=== PATIENT | female | born 1955 | race Caucasian/White ===

== ENCOUNTER → 2017-09-10 09:21 | Outpatient (CLI) | payer BC, SELFPAY ==
--- NOTE | 2017-09-10 09:25 | MM_ITS ---
MM Dig screening mamm BI w/CAD CAD Screening COMPARISON: Digital mammograms 07/10/2016 and 07/08/2015 INDICATION: There is no personal or family history of breast cancer TECHNIQUE: Standard CC and MLO images were obtained. R2 CAD reviewed. FINDINGS: Scattered fibroglandular densities are seen in both breast primarily upper outer quadrants. There are 2 mole markers left breast and a single marker right breast. There are 2 faint density seen in her quadrant right breast only definitely on the cc view. These may be moles but they are not marked as such. There is a possible asymmetric density just deep to the nipple left breast. Suggest patient return for spot compression views of the densities right breast and left breast and possibly ultrasound if these prove to be a true lesions. There are no suspicious microcalcifications. IMPRESSION: Fibrofatty parenchyma with possible new asymmetric densities in each breast BI-RADS Category: 0 Need Additional Imaging Evaluation RECOMMENDED FOLLOW-UP: IMM - IMMEDIATE FOLLOW-UP RECOMMENDED (A letter has been sent to the patient regarding results of the study.)
== END ==
PROVIDERS: Family Provider Family Medicine; PCP Family Medicine; Visit Provider Family Medicine
DX: Z12.31 Encounter for screening mammogram for malignant neoplasm of breast (principal)
CPT/HCPCS: 77067

== ENCOUNTER → 2017-09-26 16:18 | Outpatient (CLI) | payer BC, SELFPAY ==
--- NOTE | 2017-09-26 | US_ITS ---
MM Dig mamm BI DX w/CAD, US breast LT complete COMPARISON: 3 06/18 and 07/10/2016 INDICATION: Follow-up abnormal mammogram ORDERING PHYSICIAN: Dylan Wu MD PATIENT AGE: 62 years TECHNIQUE: Problem-solving views of both breasts and left breast ultrasound FINDINGS: Right breast: The area of asymmetric density in the medial aspect and retroareolar region of the right breast appear to compress out as fibroglandular tissue Left breast: Spot compression views of the left breast shows some persistent nodularity in the medial aspect of the left breast probably related to fibroglandular tissue. Left breast ultrasound with axilla: There is an oval 7 x 3 mm area of decreased echogenicity at 6:00 near the chest wall. No other significant anomalies are evident. IMPRESSION: No convincing evidence of malignancy. Probably benign findings both breasts BI-RADS Category: 3 Benign Finding Short Term Follow-up RECOMMENDED FOLLOW-UP: 6M - 6 MONTH FOLLOW-UP Recommend bilateral mammographic follow-up and left sonographic follow-up in 6 months (A letter has been sent to the patient regarding results of the study.)
== END ==
PROVIDERS: Family Provider Family Medicine; PCP Family Medicine; Visit Provider Family Medicine
DX: R92.8 Other abnormal and inconclusive findings on diagnostic imaging of breast (principal)
CPT/HCPCS: 76641; 77066

== ENCOUNTER → 2018-03-21 13:06 | Outpatient (CLI) | payer BC, SELFPAY ==
--- NOTE | 2018-03-21 13:11 | MM_ITS ---
MM Dig mamm BI DX w/CAD, US breast LT complete INDICATION: Follow-up abnormal mammogram ORDERING PHYSICIAN: Dylan Wu MD PATIENT AGE: 62 years COMPARISON: 09/26/2017, 09/10/2017, 07/10/2016, 07/09/2014 TECHNIQUE: Standard images performed of both breasts along with spot compression views of the left breast and left breast ultrasound FINDINGS: There is average fibroglandular tissue. The asymmetric density in the medial aspect of the right breast has not significantly changed. Benign-appearing nodular opacity lateral right breast also unchanged. Asymmetric density in the medial aspect of the left breast in the retroareolar region somewhat less apparent. No malignant appearing mass or malignant microcalcification is evident. Left breast ultrasound: Hypoechoic 6 mm area once again noted in the left breast at 6:00 not significant changed. No suspicious abnormalities evident. IMPRESSION: Benign findings, no evidence of malignancy, no significant change Recommend continued screening mammogram in August 2018 BI-RADS Category: 2 Benign Finding(s) RECOMMENDED FOLLOW-UP: 6M - 6 MONTH FOLLOW-UP (A letter has been sent to the patient regarding results of the study.)
== END ==
PROVIDERS: PCP Family Medicine; Visit Provider Family Medicine
DX: R92.8 Other abnormal and inconclusive findings on diagnostic imaging of breast (principal)
CPT/HCPCS: 76641; 77066

== ENCOUNTER → 2018-09-24 09:38 | Outpatient (CLI) | payer MEDICARE, SELFPAY ==
--- NOTE | 2018-09-24 09:43 | MM_ITS ---
MM Dig screening mamm BI w/CAD CAD Screening COMPARISON: Digital mammograms with CAD 03/21/2018 and 07/10/2016 INDICATION: There is no personal or family history of breast cancer TECHNIQUE: Standard CC and MLO images were obtained. R2 CAD reviewed. FINDINGS: Scattered fibroglandular densities are seen throughout both breasts and the findings are bilateral and symmetrical. There are mole markers on each breast. There is no suspicious lesion and there are no suspicious microcalcifications. IMPRESSION: Fibrofatty parenchyma with no suspicious lesion seen BI-RADS Category: 2 Benign Finding(s) RECOMMENDED FOLLOW-UP: 1YR - 1 YEAR FOLLOW-UP (A letter has been sent to the patient regarding results of the study.)
== END ==
PROVIDERS: PCP Family Medicine; Referring Provider Family Medicine; Visit Provider Family Medicine
DX: Z12.31 Encounter for screening mammogram for malignant neoplasm of breast (principal)
CPT/HCPCS: 77067

== ENCOUNTER → 2018-10-22 15:25 | Outpatient (POV) | payer MEDICARE, SELFPAY | PROVIDERS: Visit Provider Dermatology | DX: Z00.00 Encounter for general adult medical examination without abnormal findings (principal) ==

== ENCOUNTER → 2019-07-08 14:05 | Outpatient (POV) | payer MEDICARE, SELFPAY | PROVIDERS: Visit Provider Dermatology | DX: Z00.00 Encounter for general adult medical examination without abnormal findings (principal) ==

== ENCOUNTER → 2019-12-18 13:07 | Outpatient (CLI) | payer MEDICARE, SELFPAY ==
--- NOTE | 2019-12-18 13:11 | MM_ITS ---
PROCEDURE: MM DIG SCREENING MAMM BI W/CAD Digital Breast Tomosynthesis Included CLINICAL INDICATION: SCREENING There is no personal or family history of breast cancer. COMPARISON: [facility] MM Dig mamm BI DX w/CAD from 09/26/2017 [facility] MM Dig mamm BI DX w/CAD from 03/21/2018 [facility] MM Dig screening mamm BI w/CAD from 09/24/2018 TECHNIQUE: Standard CC and MLO images and 3D Tomosynthesis was obtained. R2 CAD reviewed. FINDINGS: Moderate diffuse scattered fibroglandular densities are seen throughout both breasts primarily upper outer quadrants. There multiple mole markers on each breast. There is a stable nodular density outer quadrant right breast. There is no suspicious lesion and no suspicious microcalcifications. IMPRESSION: Fibrofatty parenchyma with no suspicious lesions seen BI-RAD Category: 2 Benign Finding(s) FOLLOW-UP: 1YR 1 Year Follow-up (A letter has been sent to the patient regarding results of the study.) Dictated by: Dr. Fadi Bernardo MD 12/19/2019 10:[address] Fadi Bernardo MD in [place] 12/19/2019 10:58
== END ==
PROVIDERS: Visit Provider Family Medicine
DX: Z12.31 Encounter for screening mammogram for malignant neoplasm of breast (principal)
CPT/HCPCS: 77063; 77067

== ENCOUNTER → 2020-01-30 10:09 | Outpatient (CLI) | payer MEDICARE, SELFPAY ==
[2020-01-30 14:24] LABS: Coronavirus 19 IgG Antibody Negative (Negative); Coronavirus 19 IgM Antibody Negative (Negative)
== END ==
PROVIDERS: Visit Provider Internal Medicine Gastroenterology
DX: Z01.818 Encounter for other preprocedural examination (principal); Z12.11 Encounter for screening for malignant neoplasm of colon
CPT/HCPCS: 36415; 86328

== ENCOUNTER 2020-02-02 07:23 | Day surgery (SDC) | payer MEDICARE, SELFPAY ==
[2020-01-28 12:33] VITALS: BMI 30.9
[2020-02-02] VITALS (7 sets, daily range): BP systolic 92–149; BP diastolic 43–81; PULSE 44–54; RESP 18; TEMP 36.1–36.4; O2SAT 97–99
--- NOTE | 2020-02-02 08:07 | P.PN_ITS ---
[facility] Anesthesia Checklist - Patient Identification Patient Identification: Arm Band - Structural Data Admitted From: Home Planned Operative Procedure/s: colonoscopy Consent for Planned Operative Procedure(s) Verified: Yes Verified Documents: Surgical Consent, History and Physical - NPO Status Verified Time NPO: 00:00 - Additional verifications Anesthesia Reactions: No - Airway Assessment C-Spine Mobility Assessed: Yes (mp2) TMJ Mobility Assessed: Yes Dentition: Good Dentition - Neurological Assessment Level of Consciousness: Awake, Alert - Anesthesia Plan Anesthesia Risk discussed: Yes Anesthesia Plan: Verified ASA Class: II Anesthesia Type: MAC [facility] History I have reviewed the patient's past medical history: Yes Medical History: Reports:: Hyperlipidemia, Hypertension Denies:: Cancer, Diabetes Mellitus Type 1, Diabetes Mellitus Type 2, Internal Pacemaker, MRSA, Seizures *Have you ever received a pneumonia vaccine?: Yes *Have you received a flu vaccine this season?: Yes Anesthesia experience/problems:: nac Other Surgeries: Yes: Other (back). No: Pacemaker Amputation: No Fractures: No - *Social History Last grade of school completed: Advanced degree Smoking Status: Never smoker Alcohol Intake: never Alcohol Intake Frequency:: a few times a month Substance Use Type: denies use *Occupational Status:: retired Housing: house Household Members: spouse *Travel in the last 8 weeks: Inside the [facility] Family Hx:: Cancer, Heart Attack
--- NOTE | 2020-02-02 08:16 | P.PCN_ITS ---
[facility] Procedure Note Procedure Note:: Colonoscopy Procedure Report: Colonoscopy with cold snare polypectomy Endoscopist: David Koch II, MD Referring physician: Juvenal Wu MD Date of Procedure: February 02, 2020 Equipment: Olympus 180 variable stiffness pediatric colonoscope Sedation: MAC sedation Indication: Mrs. Stoner is a 64-year-old female who is here for follow-up screening/surveillance colonoscopy. She did have initial screening colonoscopy in July 2009 and had a single polyp (inflammatory polyp) removed at that time. She reports no abdominal pain, weight loss, change in her bowel habits or rectal bleeding. She reports no family history of colon cancer. Procedure: Prior to the procedure, a history and physical exam was performed, and patient's medications and allergies were reviewed. The risks, benefits and alternatives of the sedation and procedure were discussed with the patient. All questions were answered and informed consent was obtained. The patient was brought to the procedure room. Patient identification and proposed procedure were verified by the physician and the nurse. The patient was placed in a left lateral decubitus position and the scope was passed under direct vision. Throughout the procedure, the patient's blood pressure, pulse, and oxygen saturations were monitored continuously. The colonoscopy was accomplished without difficulty. The patient tolerated the procedure well. Findings: On digital rectal examination there was normal rectal tone. There were no external hemorrhoids. The colonoscope was introduced through the anal canal to the rectum and advanced to the cecum. The ileocecal valve and appendiceal orifice were identified. The scope was advanced a short distance into the ileum which appeared grossly normal. The scope was then withdrawn into the colon. There were 2 diminutive polyps in the cecum (3 and 3 mm) and 2 polyps in the descending (4 and 4 mm). All 4 of these polyps were removed via cold snare polypectomy. There were scattered diverticuli throughout the descending and sigmoid colon (LEFT colon). The rectum itself was normal. Upon retroflexion within the rectum there were grade 1 internal hemorrhoids. The preparation was excellent throughout with [place] Preparation Score of 9. The cecal time was 12 minutes. Impression: 1. Diminutive colonic polyps x4 2. Left-sided diverticulosis 3. Grade 1 internal hemorrhoids Plan: I will follow up the polyp pathology and recommend repeat colonoscopy again in 5-10 years based upon the polyp histology. I would encourage fiber supplementation on a long-term daily maintenance basis.
--- NOTE | 2020-02-02 08:25 | HMH.ANESCL ---
[facility] Anesthesia Checklist - Structural Data Admitted From: Home Planned Operative Procedure/s: colonoscopy Consent for Planned Operative Procedure(s) Verified: Yes - Additional verifications Anesthesia Reactions: No - Airway Assessment C-Spine Mobility Assessed: Yes TMJ Mobility Assessed: Yes Dentition: Good Dentition - Neurological Assessment Level of Consciousness: Awake, Alert, Appropriate - Anesthesia Plan Anesthesia Risk discussed: Yes Anesthesia Plan: Verified ASA Class: II Anesthesia Type: MAC [facility] History I have reviewed the patient's past medical history: Yes Medical History: Reports:: Hyperlipidemia, Hypertension Denies:: Cancer, Diabetes Mellitus Type 1, Diabetes Mellitus Type 2, Internal Pacemaker, MRSA, Seizures *Have you ever received a pneumonia vaccine?: Yes *Have you received a flu vaccine this season?: Yes Anesthesia experience/problems:: none Other Surgeries: Yes: Other (back). No: Pacemaker Amputation: No Fractures: No - *Social History Last grade of school completed: Advanced degree Smoking Status: Never smoker Alcohol Intake: never Alcohol Intake Frequency:: a few times a month Substance Use Type: denies use *Occupational Status:: retired Housing: house Household Members: spouse *Travel in the last 8 weeks: Inside the [facility] Family Hx:: Cancer, Heart Attack
== END 2020-02-02 09:37 | disposition home or self-care (01) ==
LOC: OUTP 07:25
PROVIDERS: PCP Family Medicine; Visit Provider Internal Medicine Gastroenterology
PROC: 0DJD8ZZ Inspection of Lower Intestinal Tract, Via Natural or Artificial Opening Endoscopic (ICD-10-PCS; CPT 45378; principal; 2020-02-02 08:30)
DX: Z12.11 Encounter for screening for malignant neoplasm of colon (principal); K63.5 Polyp of colon; K57.30 Diverticulosis of large intestine without perforation or abscess without bleeding; K64.0 First degree hemorrhoids; E78.5 Hyperlipidemia, unspecified; I10 Essential (primary) hypertension; Z79.899 Other long term (current) drug therapy
CPT/HCPCS: 45385; 88305

== ENCOUNTER → 2021-01-17 10:44 | Outpatient (CLI) | payer MEDICARE, SELFPAY ==
--- NOTE | 2021-01-17 10:46 | MM_ITS ---
PROCEDURE: MM DIG SCREENING MAMM BI W/CAD Digital Breast Tomosynthesis Included CLINICAL INDICATION: SCREENING COMPARISON: MG MM DIG SCREENING MAMM BI W/CAD from 12/18/2019 TECHNIQUE: Standard CC and MLO images and 3D Tomosynthesis was obtained. R2 CAD reviewed. FINDINGS: The breasts are composed of scattered fibroglandular tissue. No dominant mass lesion, suspicious calcification or architectural distortion is noted. Focal density in the right upper outer quadrant, unchanged compared to prior study, most likely represents an intramammary lymph node. Bilateral mole markers are noted. IMPRESSION: Benign findings. BI-RAD Category: 2 Benign Finding FOLLOW-UP: 1 YR 1 Year Follow-up (A letter has been sent to the patient regarding results of the study.) Dictated by: Abby Barksdale 01/18/2021 08:44 Abby Barksdale in [place] 01/18/2021 08:44
== END ==
PROVIDERS: PCP Family Medicine; Visit Provider Family Medicine
DX: Z12.31 Encounter for screening mammogram for malignant neoplasm of breast (principal)
CPT/HCPCS: 77063; 77067

== ENCOUNTER → 2022-01-27 09:06 | Outpatient (CLI) | payer MEDICARE, SELFPAY ==
--- NOTE | 2022-01-27 09:13 | XR_ITS ---
FINAL REPORT TECHNIQUE: Bone densitometry calculations of the lumbar spine and left hip were obtained. CLINICAL HISTORY: post menopausal FINDINGS: Using L1-4, the bone mineral density of the spine is 1.184 g/cm2, corresponding to T-score of 1.2. Using the left hip, the bone mineral density of the femoral neck is 0.757 g/cm2, corresponding to a T-score of -0.5. Using the right hip, the bone mineral density of the femoral neck is 0.7380 g/cm2, corresponding to a T-score of -1.0 NOTE: T-score: Standard deviation compared with peak bone mass of young adult mean. *Following the recommendations of the International Society of Bone densitometry, classification of hip BMD is based on the lower of two T-scores; total hip or femoral neck. IMPRESSION: Normal bone mineral density of the lumbar spine and hip. FRAX score was not reported because all scores are at or above -1.0. Reviewed, Interpreted and Dictated by Sunil Murillo III, MD Transcribed by Marie Palomino Authenticated and [facility]
--- NOTE | 2022-01-27 09:13 | MM_ITS ---
PROCEDURE INFORMATION: Exam: MG Bilateral Screening 3D Mammography Exam date and time: 01/27/2022 9:21 AM Age: 66 years old Clinical indication: Screening examination TECHNIQUE: Imaging protocol: Bilateral Screening tomosynthesis and 2D mammography including computer-aided detection (CAD) when performed. COMPARISON: 1. MG MM DIG SCREENING MAMM BI W/CAD 01/17/2021 10:51 AM 2. MG MM DIG SCREENING MAMM BI W/CAD 12/18/2019 1:12 PM FINDINGS: MAMMOGRAPHY: Breast composition: There are scattered areas of fibroglandular density. Mass: None. Architectural distortion: None. Calcifications: No suspicious calcifications. Asymmetric density: None. Skin thickening: None. Axillary adenopathy: None. IMPRESSION: No mammographic evidence of malignancy. Annual screening is recommended unless otherwise clinically indicated. ASSESSMENT: BI-RADS Category 1: Negative
== END ==
PROVIDERS: PCP Family Medicine; Visit Provider Family Medicine
DX: Z12.31 Encounter for screening mammogram for malignant neoplasm of breast (principal); Z78.0 Asymptomatic menopausal state
CPT/HCPCS: 77063; 77067; 77080

== ENCOUNTER → 2022-02-14 08:48 | Outpatient (POV) | payer MEDICARE, SELFPAY | PROVIDERS: Visit Provider Dermatology | DX: Z00.00 Encounter for general adult medical examination without abnormal findings (principal) ==

== ENCOUNTER → 2022-03-08 15:19 | Outpatient (CLI) | payer MEDICARE, SELFPAY ==
[2022-03-08 15:46] LABS: Basophils # 0.1 K/mm3 (0-0.2); Basophils % 1.1 % (0.1-2.0); Eosinophils # 0.1 K/mm3 (0.0-0.4); Eosinophils % 1.1 % (0.1-12.0); Hematocrit 38.7 % (37.0-47.0); Hemoglobin 12.6 g/dL (12.2-16.2); Lymphocytes # 0.5 K/mm3 (0.7-4.5); Lymphocytes % 11.2 % (10-50); Mean Corpuscular HGB Conc 32.4 g/dL (31.8-35.4); Mean Corpuscular Hemoglobin 33.2 pg (27.0-31.2); Mean Corpuscular Volume 102.4 fl (81-99); Mean Platelet Volume 8.2 fl (7.4-10.4); Monocytes # 0.3 K/mm3 (0.1-1.0); Monocytes % 7.1 % (1.7-9.3); Neutrophils # 3.9 K/mm3 (1.8-7.8); Neutrophils % 79.6 % (37.0-80.0); Platelet Count 214 K/mm3 (142-424); Red Blood Count 3.78 M/mm3 (4.20-5.40); Red Cell Distribution Width 13.7 % (11.5-17.5); White Blood Count 4.9 K/mm3 (4.8-10.8)
== END ==
PROVIDERS: PCP Family Medicine; Visit Provider Physician Assistant
DX: U07.1 COVID-19 (principal)
CPT/HCPCS: 36415; 85025; C9803; U0003; U0005

== ENCOUNTER → 2023-02-12 10:15 | Outpatient (CLI) | payer MEDICARE, SELFPAY ==
--- NOTE | 2023-02-12 10:19 | MM_ITS ---
PROCEDURE INFORMATION: Exam: MG Bilateral Screening 3D Mammography Exam date and time: 02/12/2023 10:10 AM Age: 67 years old Clinical indication: Screening mammogram TECHNIQUE: Imaging protocol: Bilateral Screening tomosynthesis and 2D mammography including computer-aided detection (CAD) when performed. COMPARISON: 1. MG MM DIG SCREENING MAMM BI W/CAD 01/27/2022 9:21 AM 2. MG MM DIG SCREENING MAMM BI W/CAD 01/17/2021 10:51 AM 3. MG MM DIG SCREENING MAMM BI W/CAD 12/18/2019 1:12 PM 4. MG [facility] MM Dig screening mamm BI w/CAD 09/24/2018 10:17 AM FINDINGS: MAMMOGRAPHY: Breast composition: There are scattered areas of fibroglandular density. Mass: None. Architectural distortion: No new or suspicious architectural distortion. Calcifications: No new or suspicious calcifications are present Asymmetric density: No new or suspicious asymmetric density is present Skin thickening: None. Axillary adenopathy: None. IMPRESSION: No mammographic evidence of malignancy. Recommend annual screening mammography unless otherwise clinically indicated. ASSESSMENT: BI-RADS category 1: Negative
== END ==
PROVIDERS: PCP Family Medicine; Visit Provider Family Medicine
DX: Z12.31 Encounter for screening mammogram for malignant neoplasm of breast (principal)
CPT/HCPCS: 77063; 77067

== ENCOUNTER 2024-02-25 12:51 | Outpatient (CLI) | payer MEDICARE, SELFPAY ==
--- NOTE | 2024-02-25 12:56 | MM_ITS ---
PROCEDURE INFORMATION: Exam: MG Bilateral Screening 3D Mammography Exam date and time: 02/25/2024 12:40 PM Age: 68 years old Clinical indication: Screening examination TECHNIQUE: Imaging protocol: Bilateral Screening tomosynthesis and 2D mammography including computer-aided detection (CAD) when performed. COMPARISON: 1. MG MM DIG SCREENING MAMM BI W/CAD 02/12/2023 10:10 AM 2. MG MM DIG SCREENING MAMM BI W/CAD 01/27/2022 9:21 AM FINDINGS: MAMMOGRAPHY: Breast composition: There are scattered areas of fibroglandular density. Mass: No suspicious masses. Architectural distortion: None. Calcifications: No suspicious calcifications. Asymmetric density: None. Skin thickening: None. Axillary adenopathy: None. IMPRESSION: No mammographic evidence of malignancy. Annual screening is recommended unless otherwise clinically indicated. ASSESSMENT: BI-RADS Category 1: Negative
== END 2024-02-25 23:59 | disposition home or self-care (01) ==
LOC: RAD 12:52
PROVIDERS: PCP Family Medicine; Visit Provider Family Medicine
DX: Z12.31 Encounter for screening mammogram for malignant neoplasm of breast (principal)
CPT/HCPCS: 77063; 77067

== ENCOUNTER 2024-07-22 09:14 | Outpatient (CLI) | payer MEDICARE, SELFPAY ==
--- NOTE | 2024-07-22 09:18 | XR_ITS ---
FINAL REPORT TECHNIQUE: Bone densitometry calculations of the lumbar spine and left hip were obtained. CLINICAL HISTORY: SCREENING FINDINGS: Using L1-4, the bone mineral density of the spine is 1.162 g/cm2, corresponding to T-score of 1.0. Using the left hip, the bone mineral density of the femoral neck is 0.703 g/cm2, corresponding to a T-score of -1.3. NOTE: T-score: Standard deviation compared with peak bone mass of young adult mean. *Following the recommendations of the International Society of Bone densitometry, classification of hip BMD is based on the lower of two T-scores; total hip or femoral neck. IMPRESSION: Diminished bone mineral density of the left hip consistent with osteopenia. Normal bone mineral density of the lumbar spine. Reviewed, Interpreted and Dictated by Allen Sommer MD Transcribed by Jennifer Brennan Authenticated and [facility]
== END 2024-07-22 23:59 | disposition home or self-care (01) ==
LOC: RAD 09:15
PROVIDERS: PCP Family Medicine; Visit Provider Family Medicine
DX: M85.88 Other specified disorders of bone density and structure, other site (principal); Z13.820 Encounter for screening for osteoporosis
CPT/HCPCS: 77080

== ENCOUNTER 2024-10-02 12:19 | Day surgery (SDC) | payer MEDICARE, SELFPAY ==
[2024-09-30 11:52] VITALS: BMI 26.6
[2024-10-02 12:50] VITALS: BP 101/51; PULSE 74; RESP 18; TEMP 36.6; O2SAT 100
--- NOTE | 2024-10-02 13:23 | EXP.ANES.CKL ---
[facility] Disclaimer: The information contained in this section may have been updated after the patient was seen, as this information can be updated by other users. Medical History (Updated 09/30/24 @ 11:49 by Shabnam Jain RN) Hyperlipidemia Hypertension Surgical History (Updated 09/30/24 @ 11:49 by Shabnam Jain RN) History of back surgery Family History (Updated 09/30/24 @ 11:50 by Shabnam Jain RN) Other Brain cancer Diabetes Heart disease Social History Smoking Status: Never smoker alcohol intake: never substance use type: denies use current occupational status: retired Travel in the last 8 weeks: Inside the [place] household members: spouse housing: house current occupational exposures/hazards: No caffeine: Yes Have you lived/traveled outside US in past 30 days?: No Contact w/someone who lives/traveled outside US past 30 days?: No Exposure to someone with infectious disease in past 14 days?: No Do you have a fever (greater than 100.4 F or 38 C)?: No Have you tested positive for COVID-19: No Exposed to someone with COVID-19 in past 14 days?: No Do you have a sore throat?: No Do you have a cough?: No Do you have any weakness?: No Do you have any diarrhea?: No Are you experiencing any unusual bleeding?: No Do you have any muscle aches/pain?: No Do you have any abdominal pain?: No Are you experiencing loss of taste or smell?: No [facility] Anesthesia Checklist Patient Identification Patient Identification: Verbal (Name & ) Structural Data Admitted From: Home Planned Operative Procedure/s: egd Consent for Planned Operative Procedure(s) Verified: Yes NPO Status Verified Time NPO: 00:00 Additional verifications Anesthesia Reactions: No Airway Assessment Mallampati Score:: Class II C-Spine Mobility Assessed: Yes TMJ Mobility Assessed: Yes Dentition: Good Dentition Neurological Assessment Level of Consciousness: Awake, Alert and Appropriate Anesthesia Plan Anesthesia Risk discussed: Yes Anesthesia Plan: Verified ASA Class: II Anesthesia Type: MAC
--- NOTE | 2024-10-02 13:55 | EXP.HP ---
History of Present Illness *Admission Date: 10/02/24 *Reason for visit:: Melena and iron deficiency anemia *History of present illness: Mrs. Stoner is a 69-year-old female who is here for diagnostic EGD. The patient has been having dyspnea on exertion and lethargy with malaise. The patient has been passing melanotic stools. Her labs had shown iron deficiency anemia. The patient has been on ibuprofen PM nightly. The examination is deemed medically necessary for diagnostic EGD. The patient has been seen, interviewed and examined prior to the procedure by both myself and the anesthesia provider. [facility] Disclaimer: The information contained in this section may have been updated after the patient was seen, as this information can be updated by other users. Medical History (Updated 10/02/24 @ 14:15 by David Koch II, MD) Hyperlipidemia Hypertension Surgical History (Updated 09/30/24 @ 11:49 by Shabnam Jain RN) History of back surgery Family History (Updated 09/30/24 @ 11:50 by Shabnam Jain RN) Other Brain cancer Diabetes Heart disease Social History Smoking Status: Never smoker alcohol intake: never substance use type: denies use current occupational status: retired Travel in the last 8 weeks: Inside the [place] household members: spouse housing: house current occupational exposures/hazards: No caffeine: Yes Have you lived/traveled outside US in past 30 days?: No Contact w/someone who lives/traveled outside US past 30 days?: No Exposure to someone with infectious disease in past 14 days?: No Do you have a fever (greater than 100.4 F or 38 C)?: No Have you tested positive for COVID-19: No Exposed to someone with COVID-19 in past 14 days?: No Do you have a sore throat?: No Do you have a cough?: No Do you have any weakness?: No Do you have any diarrhea?: No Are you experiencing any unusual bleeding?: No Do you have any muscle aches/pain?: No Do you have any abdominal pain?: No Are you experiencing loss of taste or smell?: No Other Medical History Have you received the Flu Vaccine for this season: Yes Have you received the Pneumonia Vaccine: Yes Review of Systems Review of Systems Review of systems (narrative): Negative *Cardiovascular Comments: Negative *Gastrointestinal Comments: Negative *Genitourinary Comments: Negative *Musculoskeletal Comments: Negative *Neurologic Comments: Negative Meds Home Medications and Allergies Home Medications ?Medication ?Instructions ?Recorded ?Confirmed ?Type hydrochlorothiazide 25 mg tablet 12.5 mg PO DAILY Fluid 09/12/19 09/30/24 History nebivolol 10 mg tablet 10 mg PO DAILY bp 01/28/20 09/30/24 History olmesartan 20 mg tablet 20 mg PO DAILY bp 01/28/20 09/30/24 History ezetimibe 10 mg tablet 10 mg PO DAILY 09/27/24 09/30/24 History fluticasone propionate 50 50 mcg intranasal AC 09/27/24 09/30/24 History mcg/actuation nasal spray,suspension New Prescriptions to Start Prescriptions: Allergies Allergy/AdvReac Type Severity Reaction Status Date / Time No Known Allergies Allergy Verified 09/30/24 11:51 Exam Data for Last 24 hours Vital signs and Labs for Last 24 Hours: Temp Pulse Resp BP Pulse Ox O2 Del Method 97.8 F 74 18 101/51 L 100 Room Air 10/02/24 12:50 10/02/24 12:50 10/02/24 12:50 10/02/24 12:50 10/02/24 12:50 10/02/24 12:50 I & O for Last 24 hours: Intake & Output 09/29/24 09/30/24 10/01/24 10/02/24 23:59 23:59 23:59 23:59 Weight 155 lb *Routine HEENT Exam Head: Present normocephalic Eye: Present EOMI and PERRL ENT: Present mucous membranes moist *Routine Neck Exam Neck: Present supple *Routine Respiratory Exam Respiratory: Present CTA bilaterally *Routine Cardiovascular Exam Cardiovascular: Present RRR *Routine Abdominal Exam Abdominal: Present soft and normoactive bowel sounds; Absent tenderness *Routine Rectal Exam Rectal:: deferred *Routine Genitalia Exam Genitalia:: deferred *Routine Extremities Exam Extremities: Absent cyanosis, clubbing or edema *Routine Skin Exam Skin: Present warm; Absent rash *Routine Neurological Exam Neurological: Present alert and oriented X3 Assessment and Plan *Assessment and plan (1) Melena: Status: Acute Category: Medical Code(s): K92.1 - Melena (2) Iron deficiency anemia: Status: Acute Category: Medical Code(s): D50.9 - Iron deficiency anemia, unspecified (3) Dyspnea on exertion: Status: Acute Category: Medical Code(s): R06.09 - Other forms of dyspnea Plan A/P: 1. Melena with iron deficiency anemia and dyspnea on exertion is the preprocedural diagnosis. The patient will be anesthetized/sedated using MAC sedation. The patient has been seen and examined. Cardiac and lung assessment prior to the examination is stable. Proceed with planned diagnostic EGD
[2024-10-02 14:04] VITALS: O2SAT 100
--- NOTE | 2024-10-02 14:16 | HMH.PROCNOTE ---
[facility] Procedure Note Date: 10/02/24 Time: 14:20 Procedure Note:: Upper Endoscopy Procedure Report: Esophagogastroduodenoscopy with cold biopsies Endoscopost: David Koch II, MD Referring Physician: Juvenal Wu MD Date of Procedure: October 02, 2024 Equipment: Olympus GIF 190 standard upper endoscope Sedation: MAC sedation Indications: Mrs. Stoner is a 69-year-old female who states that she had a fall last Sunday and has been feeling lethargic with malaise. She also has had dyspnea on exertion. She was seen at the [facility] and by Dr. Olmedo. Lab work was performed and she had moderate iron deficiency anemia (labs not available). The patient also has had black melanotic stools. The patient has been on ibuprofen PM in the evenings. She is not on iron presently or PPI therapy. Procedure: Prior to the procedure, a history and physical exam was performed, and patient's medications and allergies were reviewed. The risks, benefits and alternatives of the sedation and procedure were discussed with the patient. All questions were answered and informed consent was obtained. The patient was brought to the procedure room. Patient identification and proposed procedure were verified by the physician and the nurse. The patient was placed in a left lateral decubitus position and the scope was passed under direct vision. Throughout the procedure, the patient's blood pressure, pulse, and oxygen saturations were monitored continuously. The upper GI endoscopy was accomplished without difficulty. The patient tolerated the procedure well. Findings: The scope was passed directly into the upper esophagus and advanced to the third portion of the duodenum. The post bulbar duodenum and duodenal bulb were normal with normal mucosa and conniventes. The scope was withdrawn through a normal duodenal bulb and pylorus into the stomach. There was a 13 to 14 mm prepyloric gastric ulcer which was not shallow or deep with regular margins. There was no visible vessel, clot or any active bleeding. The remainder of the body and fundus of the stomach were grossly normal. Upon retroflexion there was a very small sliding 1 to 2 cm hiatal hernia. Biopsies were taken from the antrum and lesser curvature to rule out H. pylori. The scope was then withdrawn into the esophagus. There was no evidence of reflux esophagitis or Davila's. The remainder of the esophageal mucosa was normal. Impression: 1. Prepyloric gastric ulcer (13 to 14 mm)?NSAID induced ulcer Plan: I will follow-up the biopsies to rule out H. pylori. I will place the patient on omeprazole and recommend that she stop ibuprofen and NSAIDs. 90% of stomach ulceration caused by NSAIDs results in no abdominal pain which really surprises people. NSAIDs cause ulcers of the stomach by interfering with the stomach's ability to protect itself from gastric acids. The stomach lining protects itself from acid and digestive fluid by producing a layer of mucus. NSAIDs block the production of this mucus layer protection by inhibiting the production of peptides called prostaglandins. This allows the development of stomach ulcerations in the lower end of the stomach. Medicines associated with stomach ulceration include anti-inflammatory medications/NSAIDs which include ibuprofen which she is taking. After healing of the ulcer (i.e. 3 months) I would consider Celebrex if needed for arthritis or inflammation or Benadryl if used for insomnia. I would also like to repeat hemogram and iron studies. She should begin oral iron replacement and I would even consider parenteral iron if her iron levels are substantially low.
[2024-10-02 14:25] VITALS: BP 90/58; PULSE 86; RESP 16; TEMP 36.5; O2SAT 99
[2024-10-02 14:35] VITALS: BP 87/65; PULSE 83; RESP 18; O2SAT 100
[2024-10-02 14:45] VITALS: BP 93/53; PULSE 81; RESP 16; O2SAT 100
[2024-10-02 14:55] VITALS: BP 99/54; PULSE 75; RESP 18; O2SAT 100
[2024-10-02 15:08] LABS: Iron 33 ug/dL (37-170)
[2024-10-02 15:17] LABS: Total Iron Binding Capacity 222 ug/dL (265-497)
[2024-10-02 15:38] LABS: Basophils % 0.4 % (0.1-2.0); Eosinophils # 0.1 K/mm3 (0.0-0.4); Eosinophils % 3.8 % (0.1-12.0); Lymphocytes # 0.9 K/mm3 (0.7-4.5); Lymphocytes % 35.6 % (10-50); Mean Corpuscular HGB Conc 33.1 g/dL (31.8-35.4); Mean Corpuscular Hemoglobin 33.6 pg (27.0-31.2); Mean Corpuscular Volume 101.3 fl (81-99); Mean Platelet Volume 9.5 fl (7.4-10.4); Monocytes # 0.3 K/mm3 (0.1-1.0); Monocytes % 9.5 % (1.7-9.3); Neutrophils # 1.3 K/mm3 (1.8-7.8); Neutrophils % 50.3 % (37.0-80.0); Platelet Count 159 K/mm3 (142-424); Red Cell Distribution Width 13.5 % (11.5-17.5); White Blood Count 2.6 K/mm3 (4.8-10.8)
[2024-10-02 15:43] LABS: Red Blood Count 1.52 M/mm3 (4.20-5.40)
[2024-10-02 15:45] LABS: Ferritin 16.7 ng/ml (11.1-264)
[2024-10-02 15:49] LABS: Hematocrit 15.4 % (37.0-47.0); Hemoglobin 5.1 g/dL (12.2-16.2)
== END 2024-10-02 15:00 | disposition home or self-care (01) ==
PROVIDERS: PCP Family Medicine; Visit Provider Internal Medicine Gastroenterology
PROC: 0DJ08ZZ Inspection of Upper Intestinal Tract, Via Natural or Artificial Opening Endoscopic (ICD-10-PCS; CPT 43239; principal; 2024-10-02 14:00)
DX: K25.9 Gastric ulcer, unspecified as acute or chronic, without hemorrhage or perforation (principal); K44.9 Diaphragmatic hernia without obstruction or gangrene; K92.1 Melena; D50.9 Iron deficiency anemia, unspecified; R06.09 Other forms of dyspnea
CPT/HCPCS: 43239; 36415; 82728; 83540; 83550; 85025

== ENCOUNTER 2024-10-03 13:59 | Outpatient (CLI) | payer MEDICARE, SELFPAY ==
[2024-10-03 14:01] VITALS: BMI 26.6
[2024-10-03 14:25] LABS: Hematocrit 25.2 % (37.0-47.0)
[2024-10-03 14:30] LABS: Hemoglobin 8.4 g/dL (12.2-16.2)
== END 2024-10-03 14:50 | disposition home or self-care (01) ==
LOC: INF 13:59
PROVIDERS: PCP Family Medicine; Visit Provider Family Medicine
DX: D50.0 Iron deficiency anemia secondary to blood loss (chronic) (principal)
CPT/HCPCS: 36415; 85014; 85018

== ENCOUNTER 2024-10-20 11:31 | Outpatient (CLI) | payer MEDICARE, SELFPAY ==
[2024-10-20 11:54] LABS: Basophils % 0.4 % (0.1-2.0); Eosinophils # 0.2 Kmm3 (0.0-0.4); Eosinophils % 3.5 % (0.1-12.0); Hematocrit 31.5 % (37.0-47.0); Hemoglobin 10.2 g/dL (12.2-16.2); Lymphocytes # 1.2 K/mm3 (0.7-4.5); Lymphocytes % 25.7 % (10-50); Mean Corpuscular HGB Conc 32.4 g/dL (31.8-35.4); Mean Corpuscular Hemoglobin 31.8 pg (27.0-31.2); Mean Corpuscular Volume 98.1 fl (81-99); Mean Platelet Volume 9.3 fl (7.4-10.4); Monocytes # 0.4 K/mm3 (0.1-1.0); Monocytes % 9.3 % (1.7-9.3); Neutrophils # 2.8 K/mm3 (1.8-7.8); Neutrophils % 60.9 % (37.0-80.0); Nucleated Red Blood Cells # 0 10^3/uL; Nucleated Red Blood Cells % 0 %; Platelet Count 248 K/mm3 (142-424); Red Blood Count 3.21 M/mm3 (4.20-5.40); Red Cell Distribution Width 12.6 % (11.5-17.5); Red Cell Distribution Width-SD 45.9 fL; White Blood Count 4.5 K/mm3 (4.8-10.8)
[2024-10-20 12:32] LABS: Iron 76 ug/dL (37-170)
[2024-10-20 12:41] LABS: Total Iron Binding Capacity 366 ug/dL (265-497)
[2024-10-20 13:08] LABS: Ferritin 16.1 ng/ml (11.1-264)
== END 2024-10-20 23:59 | disposition home or self-care (01) ==
LOC: LAB 11:32
PROVIDERS: PCP Family Medicine; Visit Provider Nurse Practitioner Family
DX: D50.9 Iron deficiency anemia, unspecified (principal)
CPT/HCPCS: 36415; 82728; 83540; 83550; 85025

== ENCOUNTER 2025-01-19 10:46 | Outpatient (CLI) | payer MEDICARE, SELFPAY ==
--- OUTSIDE RECORDS SUMMARY | 2025-01-19 10:52 | XMS_ITS | Clinical Summary ---
Author Organization Healthcare Address [address] [place] [address] Care Team Providers Care Fishing Floats Assembler Name Role Phone Dylan Wu MD Primary Care Provider [phone] Social History Tobacco Use Types Packs/Day Years Used Date Smoking Tobacco: Never Assessed Comments Unknown Sex and Gender Information Value Date Recorded Sex Assigned at Not on file Legal Sex Female 7:36 PM EDT Gender Identity Not on file Sexual Orientation Not on file Plan of Treatment Upcoming Encounters Date Type Department Care Team (Late st Contact Info) Description 04/27/2025 11:00 AM EDT Ovarian Cancer Screening [facility] [address] [place] [address] Health Maintenance Due Date Last Done Comments [facility]-Bone Density Scan 1955 [facility]-Depression Screening 1955 [facility]-Hepatitis C Screening 1955 [facility]-Medicare Annual Wellness (AWV) 1955 [facility]-/Child/Adol SDOH Screenings 1955 [facility]- SDOH Screenings 1971 [facility]-Adult SDOH Screenings 1971 [facility]-DTaP,Tdap,and Td Vaccines (1 - Tdap) 09/03/1996 09/02/1996 CT Colonography 1998 Colonoscopy 1998 FIT-DNA 1998 FIT 1998 FOBT 1998 Sigmoidoscopy 1998 [facility]-Colorectal Cancer Screening 1998 [facility]-Breast Cancer Screening 2003 [id number] Vaccine ( season) 2024 04/20/2023, 2022, 10/17/2021, Additional history exists [facility]-Influenza Vaccine (#1) 03/02/202504/20, 04/23/2021, 04/10/2018, Additional history exists [facility]-RSV Vaccine: 60+ Years or (1 - 1-dose 75+ series) 2028 [facility]-Zoster Vaccines Completed 06/30/2021, [facility]-Pneumococcal Vaccine: 50+ Years Completed 12/30/2021, 12/26/2019 HPV Vaccines Aged Out No longer eligi ble based on patient's age to complete this topic [facility]-HIB Vaccines Aged Out No longer e ligible based on patient's age to complete this topic [facility]-Hepatitis A Vaccines Aged Out No longer eligible based on patient's age to complete this topic [facility]-IPV Vaccines Aged Out No longer e ligible based on patient's age to complete this topic [facility]-Rotavirus Vaccines Aged Out No lo nger eligible based on patient's age to complete this topic Insurance [facility] MEDICARE Care Teams Fishing Floats Assembler Relationship Specialty Start Date End Date Dylan Wu MD [address] [place] [address] PCP - General 11/12/20
[2025-01-19 11:52] LABS: Hematocrit 40.0 % (37.0-47.0); Hemoglobin 13.6 g/dL (12.2-16.2); Immature Granulocytes % 0.4 %; Mean Corpuscular HGB Conc 34.0 g/dL (31.8-35.4); Mean Corpuscular Hemoglobin 31.1 pg (27.0-31.2); Mean Corpuscular Volume 91.5 fl (81-99); Nucleated Red Blood Cells % 0 %; Platelet Count 249 K/mm3 (142-424); Red Blood Count 4.37 M/mm3 (4.20-5.40); Red Cell Distribution Width-SD 44.9 fL; White Blood Count 5.3 K/mm3 (4.8-10.8)
[2025-01-19 12:11] LABS: Iron 134 ug/dL (37-170)
[2025-01-19 12:20] LABS: Total Iron Binding Capacity 287 ug/dL (265-497)
[2025-01-19 12:47] LABS: Ferritin 46.8 ng/ml (11.1-264)
== END 2025-01-19 23:59 | disposition home or self-care (01) ==
LOC: LAB 10:46
PROVIDERS: PCP Family Medicine; Visit Provider Nurse Practitioner Family
DX: D50.9 Iron deficiency anemia, unspecified (principal)
CPT/HCPCS: 36415; 82728; 83540; 83550; 85025

== ENCOUNTER 2025-03-24 14:35 | Outpatient (CLI) | payer MEDICARE, SELFPAY ==
--- OUTSIDE RECORDS SUMMARY | 2024-09-29 04:30 | XMS_ITS ---
Author Organization [facility]ir[facility] Address [address] [place] [id number] Care Team Providers Care Business Operations Manager Name Role Phone Patsy Wu Primary Care Provider Ismael Olmedo Unavailable [phone] Results Component Value Reference Range Notes CBC Venipuncture (in house) Reviewed date:09/30/2024 03:20:38 PM Interpretation:Normal Performing Lab: Notes/Report: Normal wbc 4.3 3.5 - 10 lymph 33.9% 15 - 50 mid 6.5% 2 - 15 gran 59.6% 35 - 80 rbc 2.57 3.5 - 5.5 hgb 8.6 11.5 - 16.5 hct 23.7 35 - 55 mcv 92.4 75 - 100 mch 33.4 25 - 35 mchc 36.1 31 - 38 platlet 263 100 - 400 CBC Venipuncture (in house) Reviewed date:09/30/2024 03:20:38 PM Interpretation:Normal Performing Lab: Notes/Report: Normal wbc 4.3 3.5 - 10 lymph 33.9% 15 - 50 mid 6.5% 2 - 15 gran 59.6% 35 - 80 rbc 2.57 3.5 - 5.5 hgb 8.6 11.5 - 16.5 hct 23.7 35 - 55 mcv 92.4 75 - 100 mch 33.4 25 - 35 mchc 36.1 31 - 38 platlet 263 100 - 400 Hemoccult- IFOBT (in house) Reviewed date:09/30/2024 03:20:38 PM Interpretation:Positive Performing Lab: Notes/Report: Positive results Pos P-Vitamin B12 Reviewed date:09/30/2024 03:20:38 PM Interpretation:Normal Performing Lab: Notes/Report: Test performed by [facility] , [address], [place] [address] Macho Barnes MD, Bss Solution Architect CLIA: [id number] Vitamin B12 639 548-2628 pg/mL P-Comprehensive Metabolic Pa hipolito (CMP) Reviewed date:09/30/2024 03:20:38 PM Interpretation:Normal Performing Lab: Notes/Report: Test performed by [facility] [address], [place] [address] Macho Barnes MD, Bss Solution Architect CLIA: [id number] Sodium 137 135-145 mmol/L Potassium 4.2 3.5-5.3 mmol/L Chloride 100 97-108 mmol/L CO2 27 22-32 mmol/L Glucose 87 65-99 mg/dL BUN 18 8-23 mg/dL Creatinine 0.91 0.50-1.00 mg/dL Calcium 9.5 8.6-10.4 mg/dL eGFR by Creatinine 67 >59 mL/min/1.73m2 Protein 6.5 6.0-8.3 g/dL Albumin 4.1 3.5-5.3 g/dL Alkaline Phosphatase 76 35-121 IU/L ALT (SGPT) 10 <5-47 IU/L AST (SGOT) 18 <5-40 IU/L Bilirubin, Total 0.2 <0.2-1.2 mg/dL A/G Ratio 1.7 1.1-2.5 P-Sed Rate (ESR) Reviewed date:09/30/2024 03:20:38 PM Interpretation:Normal Performing Lab: Notes/Report: Test performed by [facility], [place] [address] Macho Barnes MD, Bss Solution Architect CLIA: [id number] Erythrocyte Sedimentation Ra te (ESR), Automated 3 <31 mm/hr P-Iron with Transferrin Satu ration Reviewed date:09/30/2024 03:20:38 PM Interpretation:Normal Performing Lab: Notes/Report: Test performed by [facility] [address] , [address], [place] [address] Macho Barnes MD, Bss Solution Architect CLIA: [id number] Iron 58 37-145 ug/dL Transferrin 242 200-360 mg/dL Transferrin Saturation Percentage 17 15-50 % P-Ferritin Reviewed date:09/30/2024 03:20:38 PM Interpretation:Normal Performing Lab: Notes/Report: Test performed by [facility] [address] , [place] [address] Macho Barnes MD, Bss Solution Architect CLIA: [id number] Ferritin 79.0 13.0-301.0 ng/mL P-Lipid Panel Reviewed date:09/30/2024 03:20:38 PM Interpretation:Normal Performing Lab: Notes/Report: Test performed by [facility] [address] , [place] [id number] Macho Barnes MD, [employer]ss Solution Architect CLIA: [id number] Cholesterol 148 <200 mg/dL Triglycerides 70 <150 mg/dL HDL Cholesterol 63 >39 mg/dL Cholesterol / HDL Ratio 2.35 0.00-4.44 Ratio Non-HDL Cholesterol 85 <130 mg/dL LDL Cholesterol (Calculation) 71 <130 mg/dL LDL Cholesterol Levels* Less than 100 mg/dL Optimal 100 to 129 mg/dL Near Optimal/ Above Optimal 130 to 159 mg/dL Borderline High 160 to 189 mg/dL High 190 mg/dL and above Very High * Categories as recommended by the 2004 ATPIII guidelines LDL/HDL Ratio 1.1 <3.3 Ratio LDL Cholesterol Patient History Test Date: 12/03/2023 LDL Results: 84 Units: mg/dL % Change: -39% Test Date: 07/03/2024 LDL Results: 123 Units: mg/dL % Change: +46% Test Date: 09/29/2024 LDL Results: 71 Units: mg/dL % Change: -42% P-Microalbumin/Creatinine, R andom Urine Sample Reviewed date:09/30/2024 03:20:38 PM Interpretation:Normal Performing Lab: Notes/Report: Test performed by [facility], [address] , [address], [place] [address] Macho Barnes MD, Bss Solution Architect CLIA: [id number] Albumin/Creatinine Ratio, Urine 7 0-30 ug/m g Microalbumin, Urine, Random 0.6 Creatinine, Urine 85.2 EGD Reviewed date:12/16/2024 10:39:22 AM Interpretation:see 10/03/24 TE Performing Lab: Notes/Report: see 10/03/24 TE REASON FOR VISIT labs Encounters Encounter Location Date Provider Diagnosis [facility] [address] [place], [place] [phone] 09/29/2024 Ismael Valier Anemia, unspecified type D64.9 ; Essential hypertension I10 ; Dyslipidemia E78.5 and Gastrointestinal hemorrhage, unspecified gastrointestinal hemorrhage type K92.2 Assessments Encounter Date Diagnosis (ICD Code) Assessment Notes Treatment Notes Treatment Clinical Notes Section Notes 09/29/2024 Anemia, unspecified type (ICD-10 - D64.9) 09/29/2024 Essential hypertension (ICD-10 - I10) 09/29/2024 Dyslipidemia (ICD-10 - E78.5) 09/29/2024 Gastrointestinal hemorrhage, unspecified gastrointestinal hemorrhage type (ICD-10 - K92.2) Plan Of Treatment No Information Progress Notes * CATRINA MCKEONDOB:1955 (69 yo F)Acc No.[id number]:09/29/2024 Patient: CATRINA RIVERA Provider: Madeleine Olmedo M.D. :1955 A ge:69 Y S ex:Female Date:09/29/2024 Address:[address] [place] [address] , [place], [id number] Pcp:Patsy Wu Subjective: * Chief Complaints: * 1 . Labs. * Medical History: Objective: * Vitals: Assessment: * Assessment: 1. A nemia, unspecified type - D64.9 (Primary) 2 . E ssential hypertension - I10 3 . D yslipidemia - E78.5 4 . G astrointestinal hemorrhage, unspecified gastrointestinal hemorrhage type - K92.2 Plan: * Treatment: Value Reference Range V itamin B12 [phone] - pg/mL * Jackie Benoit 09/30/2024 03:20 :32 PM > See phone encounter ?LAB: P-Sed Rate (ESR) (Collection Date & Time - 09/29/2024 07:40 AM)?Normal * Value Reference Range E rythrocyte Sedimentation Rate (ESR), Automated 3 <31 - mm/hr * Jackie Benoit 09/30/2024 03:20 :32 PM > See phone encounter ?LAB: P-Iron with Transferrin Saturation (Collection Date & Time - 09/29/2024 07:40 AM)?Normal* Value Reference Range I sindy 58 37-145 - ug/dL * T ransferrin 242 200-360 - mg/dL * T ransferrin Saturation Percentage 17 15-50 - % * Jackie Benoit 09/30/2024 03:20 :32 PM > See phone encounter ?LAB: P-Ferritin (Collection Date & Time - 09/29/2024 07:40 AM)?Normal* Value Reference Range F erritin 79.0 13.0-301.0 - ng/mL * Jackie Benoit 09/30/2024 03:20 :32 PM > See phone encounter ?LAB: CBC Venipuncture (in house) (Collection Date & Time - 09/29/2024)? Normal* Value Reference Range w bc 4.3 3.5 - 10 * l ymph 33.9% 15 - 50 * m id 6.5% 2 - 15 * g ran 59.6% 35 - 80 * r bc 2.57 3.5 - 5.5 * h gb 8.6 11.5 - 16.5 * h ct 23.7 35 - 55 * m cv 92.4 75 - 100 * m ch 33.4 25 - 35 * m chc 36.1 31 - 38 * p latlet 263 100 - 400 * Suki Paul 09/29/2024 8:56:13 AM > Jackie Benoit 09/30/2024 03:20:32 PM > See phone encounter ?LAB: Hemoccult- IFOBT (in house) (Collection Date & Time - 09/29/2024)? Positive* Value Reference Range r esults Pos * Suki Paul 09/29/2024 8:55:04 AM > Jackie Benoit 09/30/2024 03:20:32 PM > See phone encounter ?Imaging: EGD (Performed Date - 10/02/2024)?see 10/03/24 TE* Ny Lombardo 09/29/2024 09:3 3:18 AM >spoke with June in Dr. Koch office; may have to defer to Dr. Villarreal as Dr. Koch is only scoping 1 day this week; faxed to Ny Barreto 09/30/2024 08:27:29 AM > spoke with June from GI; said this is taken care of 2.?Essential hypertension?LAB: P-Comprehensive Metabolic Panel (CMP) (Collection Date & Time - 09/29/2024 07:40 AM)?Normal* Value Reference Range A /G Ratio 1.7 1.1-2.5 - * A lbumin 4.1 3.5-5.3 - g/dL * A lkaline Phosphatase 76 35-121 - IU/L * A LT (SGPT) 10 <5-47 - IU/L * A ST (SGOT) 18 <5-40 - IU/L * B ilirubin, Total 0.2 <0.2-1.2 - mg/dL * B UN 18 8-23 - mg/dL * C alcium 9.5 8.6-10.4 - mg/dL * C hloride 100 97-108 - mmol/L * C O2 27 22-32 - mmol/L * C reatinine 0.91 0.50-1.00 - mg/dL * G lucose 87 65-99 - mg/dL * P otassium 4.2 3.5-5.3 - mmol/L * S odium 137 135-145 - mmol/L * P rotein 6.5 6.0-8.3 - g/dL * e GFR by Creatinine 67 >59 - mL/min/1.73m2 * Jackie Benoit 09/30/2024 03:20 :32 PM > See phone encounter ?LAB: P-Microalbumin/Creatinine, Random Urine Sample (Collection Date & Time - 09/29/2024 07:40 AM)?Normal* Value Reference Range A lbumin/Creatinine Ratio, Urine 7 0-30 - ug /mg * C reatinine, Urine 85.2 - mg/dL * M icroalbumin, Urine, Random 0.6 - mg/dL * Jackie Benoit 09/30/2024 03:20 :32 PM > See phone encounter 3.?Dyslipidemia?LAB: P-Comprehensive Metabolic Panel (CMP) (Collection Date & Time - 09/29/2024 07:40 AM)?Normal* Value Reference Range A /G Ratio 1.7 1.1-2.5 - * A lbumin 4.1 3.5-5.3 - g/dL * A lkaline Phosphatase 76 35-121 - IU/L * A LT (SGPT) 10 <5-47 - IU/L * A ST (SGOT) 18 <5-40 - IU/L * B ilirubin, Total 0.2 <0.2-1.2 - mg/dL * B UN 18 8-23 - mg/dL * C alcium 9.5 8.6-10.4 - mg/dL * C hloride 100 97-108 - mmol/L * C O2 27 22-32 - mmol/L * C reatinine 0.91 0.50-1.00 - mg/dL * G lucose 87 65-99 - mg/dL * P otassium 4.2 3.5-5.3 - mmol/L * S odium 137 135-145 - mmol/L * P rotein 6.5 6.0-8.3 - g/dL * e GFR by Creatinine 67 >59 - mL/min/1.73m2 * Jackie Benoit 09/30/2024 03:20 :32 PM > See phone encounter ?LAB: P-Lipid Panel (Collection Date & Time - 09/29/2024 07:40 AM)?Normal* Value Reference Range C holesterol / HDL Ratio 2.35 0.00-4.44 - Ratio * C holesterol 148 <200 - mg/dL * H DL Cholesterol 63 >39 - mg/dL * L DL Cholesterol (Calculation) 71 <130 - mg/d L * L DL/HDL Ratio 1.1 <3.3 - Ratio * N on-HDL Cholesterol 85 <130 - mg/dL * T riglycerides 70 <150 - mg/dL * Jackie Benoit 09/30/2024 03:20 :32 PM > See phone encounter 4.?Gastrointestinal hemorrhage, unspecified gastrointestinal hemorrhage type?Imaging: EGD (Performed Date - 10/02/2024)?see 10/03/24 Ny Dunlap 09/29/2024 09:3 3:18 AM >spoke with June in Dr. Koch office; may have to defer to Dr. Villarreal as Dr. Koch is only scoping 1 day this week; faxed to Ny Barreto 09/30/2024 08:27:29 AM > spoke with June from GI; said this is taken care of * Procedure Codes: 8 5025 CBC WITH AUTO DIFF, 82908 ASSAY TEST FOR BLOOD, FECAL, Modifiers: QW * Images: Billing Information: * Visit Code: * Procedure Codes: 01677 CBC WITH AUTO DIFF. 55650 ASSAY TEST FOR BLOOD, FECAL. Modifiers: QW * Electronic signature of Clementina Olmedo MD on 03/24/2025 at 02:39 PM EDT Sign off status: Pending * Provider: Madeleine Olmedo M.D. Date: 0 09/29/2024 Generated for Gema salazar/Maria Guadalupe/Carlaitting on: 0 03/24/2025 02:39 PM EDT
--- OUTSIDE RECORDS SUMMARY | 2024-10-10 04:50 | XMS_ITS ---
Author Organization [facility] Address [address] [place] [id number] Care Team Providers Care Photoengraving Proofer Name Role Phone Patsy Wu Primary Care Provider Ismael Olmedo Unavailable [phone] Results Component Value Reference Range Notes CBC Fingerstick (in house) Reviewed date:10/10/2024 01:23:53 PM Interpretation: Performing Lab: Notes/Report: wbc 4.0 3.5 - 10 lym 33.8% 15 - 50 mid 6.2% 2 - 15 gran 60.0% 35 - 80 rbc 3.02 3.5 - 5.5 hgb 9.8 11.5 - 16.5 hct 28.8 35 - 55 mcv 95.3 75 - 100 mch 32.5 25 - 35 mchc 34.1 31 - 38 plat 302 100 - 400 REASON FOR VISIT CBC Medications Medication SIG (Take, Route, Frequency, Duration) Notes Start Date End Date Status hydroCHLOROthiazide 12.5 MG 1 tab(s) ora lly once a day; Duration: 90 days Active Feosol Bifera 28 MG 1 tablet Orally Once a day 10/03/2024 Active Olmesartan Medoxomil 20 MG 1 tab(s) oral ly once a day; Duration: 90 days Active Nebivolol HCl 10 mg TAKE 1 TABLET DAILY Active Ezetimibe 10 MG 1 tablet Orally Once a day 07/08/2024 Active Semaglutide(0.25 or 0.5MG/DO S) 2 MG/3ML as directed Subcutaneous once a week Active Encounters Encounter Location Date Provider Diagnosis [facility] [address] [facility] [address] [place] [id number] 10/10/2024 Ismaeltamiko Olmedo Anemia, unspecified type D64.9 Assessments Encounter Date Diagnosis (ICD Code) Assessment Notes Treatment Notes Treatment Clinical Notes Section Notes 10/10/2024 Anemia, unspecified type (ICD-10 - D64.9) Plan Of Treatment No Information Progress Notes * CATRINA MCKEONDOB:1955 (69 yo F)Acc No.[id number]:10/10/2024 Patient: CATRINA RIVERA Provider: Madeleine Olmedo M.D. :1955 A ge:69 Y S ex:Female Date:10/10/2024 Address:[address] [place] [address] [place], [id number] Pcp:Patsy Wu Subjective: * Chief Complaints: * 1 . CBC. * Medical History: * Medications: T aking Semaglutide(0.25 or 0.5MG/DOS) 2 MG/3ML Solution Pen-injector as directed Subcutaneous once a week , Taking Ezetimibe 10 MG Tablet 1 tablet Orally Once a day , Taking Olmesartan Medoxomil 20 MG Tablet 1 tab(s) orally once a day , Taking Nebivolol HCl 10 mg Tablet TAKE 1 TABLET DAILY , Taking hydroCHLOROthiazide 12.5 MG Tablet 1 tab(s) orally once a day , Taking Feosol Bifera 28 MG Tablet 1 tablet Orally Once a day , Medication List reviewed and reconciled with the patient Objective: * Vitals: Assessment: * Assessment: 1. A nemia, unspecified type - D64.9 (Primary) Plan: * Treatment: Value Reference Range w bc 4.0 3.5 - 10 * l ym 33.8% 15 - 50 * m id 6.2% 2 - 15 * g ran 60.0% 35 - 80 * r bc 3.02 3.5 - 5.5 * h gb 9.8 11.5 - 16.5 * h ct 28.8 35 - 55 * m cv 95.3 75 - 100 * m ch 32.5 25 - 35 * m chc 34.1 31 - 38 * p lat 302 100 - 400 * Suki Paul 10/10/2024 9:15:15 AM >Lsahonda Lindsey 10/10/2024 01:23:03 PM > H&H has improved. pt informed * Procedure Codes: 3 6416 CAPILLARY BLOOD DRAW, 64318 CBC WITH AUTO DIFF * Images: Billing Information: * Visit Code: * Procedure Codes: 55315 CAPILLARY BLOOD DRAW. 41929 CBC WITH AUTO DIFF. * Electronic signature of Clementina Olmedo MD on 03/24/2025 at 02:39 PM EDT Sign off status: Pending * Provider: Madeleine Olmedo M.D. Date: 0 10/10/2024 Generated for Gema salazar/Maria Guadalupe/Carlaitting on: 0 03/24/2025 02:39 PM EDT
--- OUTSIDE RECORDS SUMMARY | 2024-12-12 07:45 | XMS_ITS ---
[facility] Address [address] [facility] [address] [place] [id number] Care Team Providers Care Letter Stamping Machine Operator Name Role Phone Patsy Wu Primary Care Provider Ismael Olmedo Unavailable [phone] Allergies Allergen (clinical drug ingredient) Drug/Non Drug Allergy documented on EMR Reaction Allergy Type Onset Date Status pravastatin Pravastatin muscle aches Drug Allergy Active rosuvastatin Rosuvastatin muscle aches Drug Allergy Active Results Component Value Reference Range Notes CBC Venipuncture (in house) Reviewed date:12/12/2024 01:11:16 PM Interpretation: Performing Lab: Notes/Report: wbc 5.2 3.5 - 10 lymph 28.7% 15 - 50 mid 6.6% 2 - 15 gran 64.7% 35 - 80 rbc 4.10 3.5 - 5.5 hgb 12.8 11.5 - 16.5 hct 38.3 35 - 55 mcv 93.3 75 - 100 mch 31.1 25 - 35 mchc 33.3 31 - 38 platlet 235 100 - 400 P-Comprehensive Metabolic Pa hipolito (CMP) Reviewed date:12/16/2024 10:40:57 AM Interpretation:Normal Performing Lab: Notes/Report: Test performed by [facility], [place] [address] [place] [address] , [address], [place] [address] Macho Barnes MD, Buckle Wire Inserter CLIA: [id number] Sodium 137 135-145 mmol/L Potassium 4.0 3.5-5.3 mmol/L Chloride 97 97-108 mmol/L CO2 27 22-32 mmol/L Glucose 86 65-99 mg/dL BUN 16 8-23 mg/dL Creatinine 0.86 0.50-1.00 mg/dL Calcium 10.0 8.6-10.4 mg/dL eGFR by Creatinine 72 >59 mL/min/1.73m2 Protein 6.8 6.0-8.3 g/dL Albumin 4.3 3.5-5.3 g/dL Alkaline Phosphatase 92 35-121 IU/L ALT (SGPT) 15 <5-47 IU/L AST (SGOT) 24 <5-40 IU/L Bilirubin, Total 0.4 <0.2-1.2 mg/dL A/G Ratio 1.7 1.1-2.5 P-CPK Reviewed date:12/16/2024 10:40:57 AM Interpretation:Normal Performing Lab: Notes/Report: Test performed by [facility] [address] , [address], [place] [address] Macho Barnes MD, Buckle Wire Inserter CLIA: [id number] Creatine Kinase 83 20-180 U/L V-B-Vobcwhvy Protein (CRP) Reviewed date:12/16/2024 10:40:57 AM Interpretation:Normal Performing Lab: Notes/Report: Test performed by [facility] , [place] [address] Macho Barnes MD, Buckle Wire Inserter CLIA: [id number] C-Reactive Protein (CRP) 0.37 <0.50 mg/dL P-Sed Rate (ESR) Reviewed date:12/16/2024 10:40:57 AM Interpretation:Normal Performing Lab: Notes/Report: Test performed by [facility] [address] , [address], [place] [address] Macho Barnes MD, Buckle Wire Inserter CLIA: [id number] Erythrocyte Sedimentation Ra te (ESR), Automated 18 <31 mm/hr P-Iron Reviewed date:12/16/2024 10:40:57 AM Interpretation:Normal Performing Lab: Notes/Report: Test performed by [facility] [address], [place] [address] Macho Barnes MD, Buckle Wire Inserter CLIA: [id number] Iron 76 37-145 ug/dL P-Lipid Panel Reviewed date:12/16/2024 10:40:57 AM Interpretation:Normal Performing Lab: Notes/Report: Test performed by [facility], [address], [place] [address] Macho Barnes MD, Buckle Wire Inserter CLIA: [id number] Cholesterol 188 <200 mg/dL Triglycerides 107 <150 mg/dL HDL Cholesterol 78 >39 mg/dL Cholesterol / HDL Ratio 2.41 0.00-4.44 Ratio Non-HDL Cholesterol 110 <130 mg/dL LDL Cholesterol (Calculation) 89 <130 mg/dL LDL Cholesterol Levels* Less than 100 mg/dL Optimal 100 to 129 mg/dL Near Optimal/ Above Optimal 130 to 159 mg/dL Borderline High 160 to 189 mg/dL High 190 mg/dL and above Very High * Categories as recommended by the 2004 ATPIII guidelines LDL/HDL Ratio 1.1 <3.3 Ratio LDL Cholesterol Patient History Test Date: 07/03/2024 LDL Results: 123 Units: mg/dL % Change: +46% Test Date: 09/29/2024 LDL Results: 71 Units: mg/dL % Change: -42% Test Date: 12/12/2024 LDL Results: 89 Units: mg/dL % Change: +25% P-Uric Acid Reviewed date:12/16/2024 10:40:57 AM Interpretation:7.3 Performing Lab: Notes/Report: Test performed by [facility] [address] , [place] [address] Macho Barnes MD, Buckle Wire Inserter CLIA: [id number] Uric Acid 7.3 2.4-7.0 mg/dL REASON FOR VISIT wrist pain Medications Medication SIG (Take, Route, Frequency, Duration) Notes Start Date End Date Status Nebivolol HCl 10 mg TAKE 1 TABLET DAILY Active Olmesartan Medoxomil 20 MG 1 tab(s) oral ly once a day; Duration: 90 days Active Ezetimibe 10 MG 1 tablet Orally Once a day 07/08/2024 Active Semaglutide(0.25 or 0.5MG/DO S) 2 MG/3ML as directed Subcutaneous once a week Active Wrist Brace - as directed 12/12/2024 Act leslie hydroCHLOROthiazide 12.5 MG 1 tab(s) ora lly once a day; Duration: 90 days Active Feosol Bifera 28 MG 1 tablet Orally Once a day 10/03/2024 Active Voltaren 1 % as directed Externally 12/12/2024 Active Vital Signs Weight 154 lbs 12/12/2024 Blood pressure systolic 118 mm Hg 12/13/19 25 Blood pressure diastolic 70 mm Hg 025 Heart Rate 72 /min 12/12/2024 Height 62 in 12/12/2024 BMI 28.16 kg/m2 12/12/2024 Encounters Encounter Location Date Provider Diagnosis [facility] [address] [place] [id number] 12/12/2024 Ismael Olmedo Left wrist pain M25. 532 ; Anemia, unspecified type D64.9 ; Right foot pain M79.671 ; Dyslipidemia E78.5 ; Myalgia M79.10 and BMI 28.0-28.9,adult Z68.28 Assessments Encounter Date Diagnosis (ICD Code) Assessment Notes Treatment Notes Treatment Clinical Notes Section Notes 12/12/2024 Left wrist pain (ICD-10 - M25.532) 12/12/2024 Anemia, unspecified type (ICD-10 - D64.9) 12/12/2024 Right foot pain (ICD-10 - M79.671) 12/12/2024 Dyslipidemia (ICD-10 - E78.5) 12/12/2024 Myalgia (ICD-10 - M79.10) 12/12/2024 BMI 28.0-28.9,adult (ICD-10 - Z68.28) Plan Of Treatment Medication Medication Name Sig Start Date Stop Date Notes Wrist Brace - as directed 12/12/2024 Voltaren 1 % as directed Externally 12/12/2024 Next Appt Details Follow Up: via phone to repo rt progress, Reason: Progress Notes * CATRINA MCKEONDOB:1955 (69 yo F)Acc No.[id number]:12/12/2024 Progress Notes Patient: CATRINA RIVERA Provider: Madeleine Olmedo M.D. :1955 A ge:69 Y S ex:Female Date:12/12/2024 Address:[address] [place] [address] [id number] Pcp:Patsy Wu Subjective: * Chief Complaints: * 1 . Wrist pain. * HPI: W rist/Hand: 69 year old female presents with c/o pain P t complains of lt wrist pain for about 2 weeks. Pt states she has noticed some swelling as well. * ROS: D ERMATOLOGY: no R kenyetta. n o H elle. G ASTROENTEROLOGY: no N ausea. n o V omiting. H EMATOLOGY/LYMPH: Positive for a nemia, needs to have H/H checked. M USCULOSKELETAL: Positive for r ight great toe pain last week for several days, patient has some muscle aches from time to time, wounders if Zetia could be the cause. ? U ROLOGY: no D ifficulty urinating. n o B lood in urine. * Medical History: D RHYS left knee, Hypertension, Tinnitus, Degenerative lumbar disc disease. * Surgical History: k nee surgery on right knee Dr Quiñones at [facility] 05/20/2008, lumbar disc surgery - Dr. Lopez 06/20/2010, Colonoscoopy/ Koch/ polyps 02/02/2020. * Hospitalization/Major Diagno stic Procedure: D tapan Past Hospitalization. * Family History: F ather: alive, HBP. M other: , brain cancer. 2 sister(s) . 1 son(s) , 1 daughter(s) . . * Social History: C URRENT TOBACCO USE S moking Status: Patient does NOT smoke. C affeine: yes, frequency:. Exercise: yes. Home smoke detector use: yes. Marital Status: . New since last visit: none. Occupation: yes. Past smoking status: no, Smoking status: Does not smoke. Occup. exposure: none. Recreational drug use: no, Past use:. Alcohol: Type: , Frequency: ,Years: , Determination:. Sexually active: yes. Travel ouside [place]: no. * Medications: T aking Semaglutide(0.25 or 0.5MG/DOS) [...] List reviewed and reconciled with the patient * Allergies: R osuvastatin: muscle aches - Side Effects, Pravastatin: muscle aches - Side Effects. Objective: * Vitals: W t: 154, Temp: 97.9, BP: 118/70, HR: 72, Nurse: stephanie, Ht: 62, BMI:28.16. * Examination: G eneral Examination: General Appearance: N AD. W rist / Hand: Wrist/Hand: l eft. I nspection: n o swelling, redness or ecchymosis. R myla of motion: n ormal flexion and extension, normal ulnar and radial deviation. S trength: n ormal strength of flexors and extensors, normal survey chief. S ensations: n ormal touch and pain sensations. Assessment: * Assessment: 1. L eft wrist pain - M25.532 (Primary) 2 . A nemia, unspecified type - D64.9 3 . R ight foot pain - M79.671 4 . D yslipidemia - E78.5? 5. M yalgia - M79.10 6 . B AK 28.0-28.9,adult - Z68.28 Plan: * Treatment: 2. A nemia, unspecified type L AB: P-Iron (Collection Date & Time - 12/12/2024 11:19 AM) N ormal Value Reference Range I sindy 76 37-145 - ug/dL * Jackie Benoit 12/16/2024 10:4 0:48 AM EDT > See phone encounter ?LAB: CBC Venipuncture (in house) (Collection Date & Time - 12/12/2024)* Value Reference Range w bc 5.2 3.5 - 10 * l ymph 28.7% 15 - 50 * m id 6.6% 2 - 15 * g ran 64.7% 35 - 80 * r bc 4.10 3.5 - 5.5 * h gb 12.8 11.5 - 16.5 * h ct 38.3 35 - 55 * m cv 93.3 75 - 100 * m ch 31.1 25 - 35 * m chc 33.3 31 - 38 * p latlet 235 100 - 400 * Suki Paul 12/12/2024 01:10: 51 PM EDT > Provider reviewed results while patient in office. 3.?Right foot pain?LAB: P-Uric Acid (Collection Date & Time - 12/12/2024 11:19 AM)?7.3* Value Reference Range U mukund Acid 7.3 H 2.4-7.0 - mg/dL * Cy Jackie 12/16/2024 10:4 0:48 AM EDT > See phone encounter 4.?Dyslipidemia?LAB: P-Comprehensive Metabolic Panel (CMP) (Collection Date & Time - 12/12/2024 11:19 AM)?Normal* Value Reference Range A /G Ratio 1.7 1.1-2.5 - * A lbumin 4.3 3.5-5.3 - g/dL * A lkaline Phosphatase 92 35-121 - IU/L * A LT (SGPT) 15 <5-47 - IU/L * A ST (SGOT) 24 <5-40 - IU/L * B ilirubin, Total 0.4 <0.2-1.2 - mg/dL * B UN 16 8-23 - mg/dL * C alcium 10.0 8.6-10.4 - mg/dL * C hloride 97 97-108 - mmol/L * C O2 27 22-32 - mmol/L * C reatinine 0.86 0.50-1.00 - mg/dL * G lucose 86 65-99 - mg/dL * P otassium 4.0 3.5-5.3 - mmol/L * S odium 137 135-145 - mmol/L * P rotein 6.8 6.0-8.3 - g/dL * e GFR by Creatinine 72 >59 - mL/min/1.73m2 * Jackie Benoit 12/16/2024 10:4 0:48 AM EDT > See phone encounter ?LAB: P-Lipid Panel (Collection Date & Time - 12/12/2024 11:19 AM)?Normal* Value Reference Range C holesterol / HDL Ratio 2.41 0.00-4.44 - Ratio * C holesterol 188 <200 - mg/dL * H DL Cholesterol 78 >39 - mg/dL * L DL Cholesterol (Calculation) 89 <130 - mg/d L * L DL/HDL Ratio 1.1 <3.3 - Ratio * N on-HDL Cholesterol 110 <130 - mg/dL * T riglycerides 107 <150 - mg/dL * Jackie Benoit 12/16/2024 10:4 0:48 AM EDT > See phone encounter 5.?Myalgia?LAB: P-CPK (Collection Date & Time - 12/12/2024 11:19 AM)?Normal* Value Reference Range C reatine Kinase 83 20-180 - U/L * Jackie Benoit 12/16/2024 10:4 0:48 AM EDT > See phone encounter ?LAB: A-A-Mlwuvyub Protein (CRP) (Collection Date & Time - 12/12/2024 11:19 AM)?Normal* Value Reference Range C -Reactive Protein (CRP) 0.37 <0.50 - mg/dL * Jackie Benoit 12/16/2024 10:4 0:48 AM EDT > See phone encounter ?LAB: P-Sed Rate (ESR) (Collection Date & Time - 12/12/2024 11:19 AM)?Normal * Value Reference Range E rythrocyte Sedimentation Rate (ESR), Automated 18 <31 - mm/hr * Jackie Benoit 12/16/2024 10:4 0:48 AM EDT > See phone encounter * Procedure Codes: G 2211 Complex e/[place], [address] CBC WITH AUTO DIFF, 1036F TOBACCO NON-USER, G8420 BMI<30 AND >=22 CALC & DOCU, G8783 BP SCR PRFRM RCMDD DEFIND SCR INTVL, G8752 MOST RECENT SYSTOLIC BP < 140MM HG, G8754 MOST RECENT DIASTOLIC BP < 90MM HG * Follow Up: v ia phone to report progress * Images: Billing Information: * Visit Code: 58626 Office Visit, Est Pt., Level 4. * Procedure Codes: G2211 Complex e/[place]. [address] CBC WITH AUTO DIFF. 1036F TOBACCO NON-USER. G8420 BMI<30 AND >=22 CALC & DOCU. G8783 BP SCR PRFRM RCMDD DEFIND SCR INTVL. G8752 MOST RECENT SYSTOLIC BP < 140MM HG. G8754 MOST RECENT DIASTOLIC BP < 90MM HG. * Electronic signature of Clementina Olmedo MD on 03/24/2025 at 02:38 PM EDT Sign off status: Pending * Provider: Madeleine Olmedo M.D. Date: 0 12/12/2024 Generated for Gema salazar/Maria Guadalupe/Roseliasmitting on: 0 03/24/2025 02:38 PM EDT History and Physical Notes * HPI (History of Present Illness) Category Sub-Category Detail Notes Category Not es Wrist/Hand pain Pt complains of lt wrist pain for about 2 weeks. Pt states she has noticed some swelling as well Examination Category Sub-Category Detail Notes Category Not es General Examination General Appearance: NAD Wrist / Hand Inspection: no swelling, red ness or ecchymosis Wrist/Hand: left Range of motion: normal flexion and e xtension, normal ulnar and radial deviation Strength: normal strength of f lexors and extensors, normal survey chief Sensations: normal touch and [place] n sensations
--- OUTSIDE RECORDS SUMMARY | 2025-02-12 11:30 | XMS_ITS ---
[facility] Address [address] [place] [id number] Care Team Providers Care Hot Mix Operator Name Role Phone Patsy Wu Primary Care Provider Shara Ismael Unavailable [phone] Allergies Allergen (clinical drug ingredient) Drug/Non Drug Allergy documented on EMR Reaction Allergy Type Onset Date Status pravastatin Pravastatin muscle aches Drug Allergy Active rosuvastatin Rosuvastatin muscle aches Drug Allergy Active REASON FOR VISIT place on back Medications Medication SIG (Take, Route, Frequency, Duration) Notes Start Date End Date Status Ezetimibe 10 mg TAKE 1 TABLET DAILY Active Wrist Brace - as directed 12/12/2024 Act leslie Voltaren 1 % as directed Externally 12/12/2024 Active Feosol Bifera 28 MG 1 tablet Orally Once a day 10/03/2024 Active Olmesartan Medoxomil 20 MG 1 tab(s) oral ly once a day; Duration: 90 days Active Semaglutide(0.25 or 0.5MG/DO S) 2 MG/3ML as directed Subcutaneous once a week Active hydroCHLOROthiazide 12.5 MG 1 tab(s) ora lly once a day; Duration: 90 days Active Nebivolol HCl 10 mg TAKE 1 TABLET DAILY Active Vital Signs Weight 152.6 lbs 02/12/2025 Blood pressure systolic 118 mm Hg 02/13/20 25 Blood pressure diastolic 72 mm Hg 025 Heart Rate 48 /min 02/12/2025 Height 62 in 02/12/2025 BMI 27.91 kg/m2 02/12/2025 Encounters Encounter Location Date Provider Diagnosis [facility] [address] [place] [id number] 02/12/2025 Pasty Wu SK (seborrheic keratosis) L82.1 and BMI 27.0-27.9,adult Z68.27 Assessments Encounter Date Diagnosis (ICD Code) Assessment Notes Treatment Notes Treatment Clinical Notes Section Notes 02/12/2025 SK (seborrheic keratosis) (ICD-10 - L82.1) Not likely to respond to cryotherapy. Will proceed with shave excision 02/12/2025 BMI 27.0-27.9,adult (ICD-10 - Z68.27) Plan Of Treatment Treatment Notes Assessment Notes SK (seborrheic keratosis) Not likely to respond to cryotherapy. Will proceed with shave excision Next Appt Details Follow Up: prn, Reason: Procedure Notes * Category Sub-Category Detail Notes Excision, skin lesion Consent: informed c onsent obtained, Photo taken of lesion Prep: usual sterile fashio n, Betadine Anesthesia: 1% lidocaine w epine phrine, local Incision type: shave Hemostasis: electrocautery Number of sutures placed: None Post-procedure: patient tolerated pr ocedure well, instructed in wound care Progress Notes * CATRINA MCKEONDOB:1955 (69 yo F)Acc No.[id number]:02/12/2025 Progress Notes Patient: CATRINA RIVERA Provider: Patsy Wu M.D. :1955 A ge:69 Y S ex:Female Date:02/12/2025 Address:[address] [place] [address] [place], [id number] Subjective: * Chief Complaints: * [address] back[address] * HPI: D ermatology: 69 year old female presents with c/o skin lesion P t is here today with c/o spot on her back. Pt sts it has been there forever and sts that back in the spring she went to a membership secretary to have it froze, but sts it never came off. Pt sts she would like to have it frozen off again today. * ROS: D ERMATOLOGY: no R kenyetta. n o H elle. G ASTROENTEROLOGY: no N ausea. n o V omiting. U ROLOGY: no D ifficulty urinating. n o B lood in urine. * Medical History: D RHYS left knee, Hypertension, Tinnitus, Degenerative lumbar disc disease. * Surgical History: k nee surgery on right knee Dr Quiñones at [facility] 05/20/2008, lumbar disc surgery - Dr. Lopez 06/20/2010, Colonoscoopy/ Koch/ polyps 02/02/2020. * Family History: F ather: alive, HBP. [...] directed Subcutaneous once a week , Taking Nebivolol HCl 10 mg Tablet TAKE 1 TABLET DAILY , Taking hydroCHLOROthiazide 12.5 MG Tablet 1 tab(s) orally once a day , Taking Feosol Bifera 28 MG Tablet 1 tablet Orally Once a day , Taking Voltaren 1 % Gel as directed Externally , Taking Wrist Brace - Miscellaneous as directed , Taking Ezetimibe 10 mg Tablet TAKE 1 TABLET DAILY , Taking Olmesartan Medoxomil 20 MG Tablet 1 tab(s) orally once a day , Medication List reviewed and reconciled with the patient * Allergies: R osuvastatin: muscle aches - Side Effects, Pravastatin: muscle aches - Side Effects. Objective: * Vitals: W t: 152.6, Temp: 97.7, BP: 118/72, HR: 48, Nurse: mmkasandra, Ht: 62, BMI:27.91. * Examination: D ermatology: Trunk: 1 .5 cm raised seborrheic keratosis on left upper back. Assessment: * Assessment: 1. S K (seborrheic keratosis) - L82.1 (Primary) 2 . B MS 27.0-27.9,adult - Z68.27 Plan: * Treatment: * Procedures: E xcision, skin lesion: Consent: i nformed consent obtained, Photo taken of lesion.?Prep: u sual sterile fashion, Betadine. A nesthesia: 1 % lidocaine w epinephrine, local. I ncision type: s have. H emostasis: e lectrocautery. N umber of sutures placed: N one. P ost-procedure: p atient tolerated procedure well, instructed in wound care. * Procedure Codes: 1 1301 SHAVE LESION,TRUNK,ARMS,LEGS 0.6 TO 1.0 CM, G2211 Complex e/m visit add on, G8420 BMI<30 AND >=22 CALC & DOCU, G8783 BP SCR PRFRM RCMDD DEFIND SCR INTVL, G8752 MOST RECENT SYSTOLIC BP < 140MM HG, G8754 MOST RECENT DIASTOLIC BP < 90MM HG * Follow Up: p rn * Images: Billing Information: * Visit Code: 63882 Office Visit, Est Pt., Level 2. Modifiers: 25 * Procedure Codes: 68138 SHAVE LESION,TRUNK,ARMS,LEGS 0.6 TO 1.0 CM. G2211 Complex e/m visit add on. G8420 BMI<30 AND >=22 CALC & DOCU. G8783 BP SCR PRFRM RCMDD DEFIND SCR INTVL. G8752 MOST RECENT SYSTOLIC BP < 140MM HG. G8754 MOST RECENT DIASTOLIC BP < 90MM HG. * Electronic signature of Patsy Wu MD on 03/24/2025 at 02:39 PM EDT Sign off status: Pending * Provider: Patsy Wu M.D. Date: 0 02/12/2025 Generated for Gema salazar/Maria Guadalupe/Jennifer on: 0 03/24/2025 02:39 PM EDT History and Physical Notes * HPI (History of Present Illness) Category Sub-Category Detail Notes Category Not es Dermatology skin lesion Pt is here today with c/o spot on her back. Pt sts it has been there forever and sts that back in the spring she went to a membership secretary to have it froze, but sts it never came off. Pt sts she would like to have it frozen off again today Examination Category Sub-Category Detail Notes Category Not es Dermatology Trunk: 1.5 cm raised se borrheic keratosis on left upper back
--- OUTSIDE RECORDS SUMMARY | 2025-03-03 07:08 | XMS_ITS ---
Author Organization [facility] Address [address] [facility] [address] [place] [id number] Care Team Providers Care Youth Minister Name Role Phone Patsy Wu Primary Care Provider [phone] Ismael Olmedo Unavailable [phone] REASON FOR VISIT due jaylan, col Encounters Encounter Location Date Provider Diagnosis [place] [address] [facility] [address] [place] [id number] 03/03/2025 Patsy Wu Breast cancer screening Z12.31 Assessments Encounter Date Diagnosis (ICD Code) Assessment Notes Treatment Notes Treatment Clinical Notes Section Notes 03/03/2025 Breast cancer screening (ICD-10 - Z12.31) Plan Of Treatment Pending Test Test Name Order Date Mammogram 03/03/2025 Progress Notes * CATRINA MCKEONDOB:1955 (69 yo F)Acc No.[id number]:03/03/2025 Patient: ARABELLA RIVERANA :1955 A ge:69 Y S ex:Female Address:[address] [place] [address] [place], [place] [id number] Subjective: * Chief Complaints: * D ue jaylan, col * Medical History: * Surgical History: * Hospitalization/Major Diagno stic Procedure: * Medications: Objective: * Vitals: * Physical Examination: Assessment: * Assessment: 1. B reast cancer screening - Z12.31 (Primary) Plan: * Treatment: * Procedure Codes: * true * Date: Generated for Printi ng/Faxing/eTransmitting on: 0 03/24/2025 02:39 PM EDT
--- NOTE | 2025-03-24 14:37 | MM_ITS ---
PROCEDURE INFORMATION: Exam: MG Bilateral Screening 3D Mammography Exam date and time: 03/24/2025 2:43 PM Age: 69 years old Clinical indication: Screening examination TECHNIQUE: Imaging protocol: Bilateral Screening tomosynthesis and 2D mammography including computer-aided detection (CAD) when performed. COMPARISON: 1. MG MM DIG SCREENING MAMM BI W/CAD 02/25/2024 12:40 PM 2. MG MM DIG SCREENING MAMM BI W/CAD 02/12/2023 10:10 AM FINDINGS: MAMMOGRAPHY: Breast composition: There are scattered areas of fibroglandular density. Mass: None. Architectural distortion: None. Calcifications: No suspicious calcifications. Asymmetric density: None. Skin thickening: None. Axillary adenopathy: None. IMPRESSION: No mammographic evidence of malignancy. Annual screening is recommended unless otherwise clinically indicated. ASSESSMENT: BI-RADS Category 1: Negative.
--- OUTSIDE RECORDS SUMMARY | 2025-03-24 14:39 | XMS_ITS | Patient Health Record ---
[facility] Organization [facility] Address [address] [facility] [address] [place] [id number] Care Team Providers Care Case Manager Name Role Phone Patsy Wu Primary Care Provider Ervin Olmedoian Unavailable [phone] Dinora Rutherford Unavailable [phone] Allergies Allergen (clinical drug ingredient) Drug/Non Drug Allergy documented on EMR Reaction Allergy Type Onset Date Status pravastatin Pravastatin muscle aches Drug Allergy Active rosuvastatin Rosuvastatin muscle aches Drug Allergy Active Results Component Value Reference Range Notes Glucose (In-House) Reviewed date:09/28/2024 10:53:56 AM Interpretation: Performing Lab: Notes/Report: blood glucose 136 74 - 106 mg/dL CBC Fingerstick (in house) Reviewed date:09/28/2024 10:54:07 AM Interpretation: Performing Lab: Notes/Report: wbc 5.2 3.5 - 10 lym 31.9% 15 - 50 mid 7.9% 2 - 15 gran 60.2% 35 - 80 rbc 2.56 3.5 - 5.5 hgb 8.5 11.5 - 16.5 hct 24.1 35 - 55 mcv 93.9 75 - 100 mch 33.4 25 - 35 mchc 35.5 31 - 38 plat 212 100 - 400 CBC Venipuncture (in house) [...] Interpretation:Normal Performing Lab: Notes/Report: Test performed by [facility] [address] [place] [address] , [address], [place] [address] Macho Barnes MD, [place] CLIA: [id number] Vitamin B12 690 399-9800 pg/mL P-Comprehensive Metabolic Pa hipolito (CMP) Reviewed date:09/30/2024 03:20:38 PM Interpretation:Normal Performing Lab: Notes/Report: Test performed by [facility] [address] [place] [address] , [address], [place] [address] Macho Barnes MD, [place] CLIA: [id number] Sodium 137 135-145 mmol/L Potassium 4.2 3.5-5.3 [...] Interpretation:Normal Performing Lab: Notes/Report: Test performed by [facility] [address] , [address], [place] [address] Macho Barnes MD, [place] CLIA: [id number] Erythrocyte Sedimentation Ra te (ESR), Automated 3 <31 mm/hr P-Iron with Transferrin Satu ration Reviewed date:09/30/2024 03:20:38 PM Interpretation:Normal Performing Lab: Notes/Report: Test performed by [facility] , [address], [place] [address] Macho Barnes MD, [place] CLIA: [id number] Iron 58 37-145 ug/dL Transferrin 242 200-360 mg/dL Transferrin Saturation Percentage 17 15-50 % P-Ferritin Reviewed date:09/30/2024 03:20:38 PM Interpretation:Normal Performing Lab: Notes/Report: Test performed by [facility] [address] , [address], [place] [address] Macho Barnes MD, [place] CLIA: [id number] Ferritin 79.0 13.0-301.0 ng/mL P-Lipid Panel Reviewed date:09/30/2024 03:20:38 PM Interpretation:Normal Performing Lab: Notes/Report: Test performed by [facility] [address] , [address], [place] [address] Macho Barnes MD, [place] CLIA: [id number] Cholesterol 148 <200 mg/dL Triglycerides 70 <150 [...] Interpretation:Normal Performing Lab: Notes/Report: Test performed by [facility] [address] [place] [address] , [address], [place] [address] Macho Barnes MD, [place] CLIA: [id number] Albumin/Creatinine Ratio, Urine 7 0-30 ug/m g Microalbumin, Urine, Random 0.6 Creatinine, Urine 85.2 EGD Reviewed date:12/16/2024 10:39:22 AM Interpretation:see 10/03/24 TE Performing Lab: Notes/Report: see 10/03/24 TE CBC Fingerstick (in house) Reviewed date:10/10/2024 01:23:53 [...] - 38 plat 302 100 - 400 CBC Venipuncture (in house) Reviewed date:12/12/2024 01:11:16 [...] Interpretation:Normal Performing Lab: Notes/Report: Test performed by [facility] [address] [place] [address] , [address], [place] [address] Macho Barnes MD, [place] CLIA: [id number] Sodium 137 135-145 mmol/L Potassium 4.0 3.5-5.3 [...] Interpretation:Normal Performing Lab: Notes/Report: Test performed by [facility] [address] [place] [address] , [facility] [place] [address] Macho Barnes MD, [place] CLIA: [id number] Creatine Kinase 83 20-180 U/L U-S-Ljcbsmvc Protein (CRP) Reviewed date:12/16/2024 10:40:57 AM Interpretation:Normal Performing Lab: Notes/Report: Test performed by [facility] [address] , [place] [address] Macho Barnes MD, [place] CLIA: [id number] C-Reactive Protein (CRP) 0.37 <0.50 mg/dL P-Sed Rate (ESR) Reviewed date:12/16/2024 10:40:57 AM Interpretation:Normal Performing Lab: Notes/Report: Test performed by [facility] [address] [place] [address] [place] [address] Macho Barnes MD, [place] CLIA: [id number] Erythrocyte Sedimentation Ra te (ESR), Automated 18 <31 mm/hr P-Iron Reviewed date:12/16/2024 10:40:57 AM Interpretation:Normal Performing Lab: Notes/Report: Test performed by [facility] [address] [place] [address] , [place] [address] Macho Barnes MD, [place] CLIA: [id number] Iron 76 37-145 ug/dL P-Lipid Panel Reviewed date:12/16/2024 10:40:57 AM Interpretation:Normal Performing Lab: Notes/Report: Test performed by [facility] [address] [place] [address] , [address], [place] [address] Macho Barnes MD, [place] CLIA: [id number] Cholesterol 188 <200 mg/dL Triglycerides 107 <150 [...] Interpretation:7.3 Performing Lab: Notes/Report: Test performed by [facility] [address] [place], [place] [id number] [place] , [address], [place] [address] Macho Barnes MD, [place] CLIA: [id number] Uric Acid 7.3 2.4-7.0 mg/dL Bone density Reviewed date:07/31/2024 08:53:41 AM Interpretation:osteopenia left hip, new diagnosis Performing Lab: Notes/Report: osteopenia left hip, new diagnosis P-Lipid Panel Reviewed date:07/08/2024 08:20:03 AM Interpretation:chol 223, non-hdl 145 Performing Lab: Notes/Report: Test performed by [facility] [address] [place] [address] [address], [place] [address] Macho Barnes MD, [place] CLIA: [id number] Cholesterol 223 <200 mg/dL Triglycerides 109 <150 mg/dL HDL Cholesterol 78 >39 mg/dL Cholesterol / HDL Ratio 2.86 0.00-4.44 Ratio Non-HDL Cholesterol 145 <130 mg/dL LDL Cholesterol (Calculation) 123 <130 mg/dL LDL Cholesterol Levels* Less than 100 mg/dL Optimal 100 to 129 mg/dL Near Optimal/ Above Optimal 130 to 159 mg/dL Borderline High 160 to 189 mg/dL High 190 mg/dL and above Very High * Categories as recommended by the 2004 ATPIII guidelines LDL/HDL Ratio 1.6 <3.3 Ratio LDL Cholesterol Patient History Test Date: 08/28/2023 LDL Results: 139 Units: mg/dL % Change: +5% Test Date: 12/03/2023 LDL Results: 84 Units: mg/dL % Change: -39% Test Date: 07/03/2024 LDL Results: 123 Units: mg/dL % Change: +46% P-Comprehensive Metabolic Pa hipolito (CMP) Reviewed date:07/08/2024 08:20:02 AM Interpretation:Normal Performing Lab: Notes/Report: Test performed by [facility] [address] [facility] , [address], [place] [address] Macho Barnes MD, [place] CLIA: [id number] Sodium 140 135-145 mmol/L Potassium 3.9 3.5-5.3 mmol/L Chloride 100 97-108 mmol/L CO2 29 22-32 mmol/L Glucose 85 65-99 mg/dL BUN 12 8-23 mg/dL Creatinine 0.76 0.50-1.00 mg/dL Calcium 10.0 8.6-10.4 mg/dL eGFR by Creatinine 84 >59 mL/min/1.73m2 Protein 6.9 6.0-8.3 g/dL Albumin 4.2 3.5-5.3 g/dL Alkaline Phosphatase 94 35-121 IU/L ALT (SGPT) 13 <5-47 IU/L AST (SGOT) 20 <5-40 IU/L Bilirubin, Total 0.5 <0.2-1.2 mg/dL A/G Ratio 1.6 1.1-2.5 CBC Venipuncture (in house) Reviewed date:07/08/2024 08:20:03 AM Interpretation:Normal Performing Lab: Notes/Report: Normal wbc 4.8 3.5 - 10 lymph 30.0% 15 - 50 mid 6.6% 2 - 15 gran 63.4% 35 - 80 rbc 4.06 3.5 - 5.5 hgb 13.1 11.5 - 16.5 hct 38.1 35 - 55 mcv 93.9 75 - 100 mch 32.4 25 - 35 mchc 34.5 31 - 38 platlet 239 100 - 400 CBC Fingerstick (in house) Reviewed date:04/04/2024 04:16:58 PM Interpretation: Performing Lab: Notes/Report: wbc 6.9 3.5 - 10 lym 26.1% 15 - 50 mid 6.0% 2 - 15 gran 67.9% 35 - 80 rbc 3.90 3.5 - 5.5 hgb 12.5 11.5 - 16.5 hct 37.3 35 - 55 mcv 95.6 75 - 100 mch 32.1 25 - 35 mchc 33.6 31 - 38 plat 214 100 - 400 M-Hemoglobin and Hematocrit Reviewed date:10/03/2024 04:25:31 PM Interpretation: Performing Lab: Notes/Report: HGB 8.4 12.2-16.2 g/dL Delta: 5.1 on 04/03/25-1447 HCT 25.2 37.0-47.0 % Medications Medication SIG (Take, Route, Frequency, Duration) Notes Start Date End Date Status Wrist Brace - as directed 12/12/2024 Act leslie Voltaren 1 % as directed Externally 12/12/2024 Active Olmesartan Medoxomil 20 MG 1 tab(s) oral ly once a day; Duration: 14 days Active Feosol Bifera 28 MG 1 tablet Orally Once a day 10/03/2024 Active Ezetimibe 10 mg 1 tablet orally once a day; Duration: 90 days Active Nebivolol HCl 10 mg 1 tablet orally once a day; Duration: 90 days Active Semaglutide(0.25 or 0.5MG/DO S) 2 MG/3ML as directed Subcutaneous once a week Active hydroCHLOROthiazide 12.5 MG 1 tab(s) ora lly once a day; Duration: 90 days Active Immunizations Vaccine Route Administration Date Status Comme nts Fluzone High Dose (65yr and older) IM Intramuscular 05/03/2019 Administered Fluzone High Dose (65yr and older) IM Intramuscular 04/13/2020 Administered Fluzone High Dose (65yr and older) Unknown 04/23/2021 Administered Fluzone High Dose (65yr and older) Unknown 04/20/2023 Administered Fluzone High Dose (65yr and older) Unknown 05/20/2024 Administered Fluzone PF Quad (6-35 months) Unknown 05/01/2016 Administered Fluzone PF Quad (6-35 months) Unknown 04/01/2017 Administered Fluzone PF Quad (6-35 months) Unknown 04/10/2018 Administered Fluzone Quad (6months&older) Unknown 04/23/2015 Administered Fluzone Quad (6months&older) Unknown 04/01/2017 Administered Fluzone Quad (6months&older) Unknown 04/10/2018 Administered Fluzone Quad-Medicare (6months&older) Unknown 04/23/2021 Administered Hepatitis B (20 and more) Unknown 08/28/1996 Administer ed Hepatitis B (20 and more) Unknown 06/11/2007 Administer ed Hepatitis B (20 and more) Unknown 11/18/2007 Administer ed Hepatitis B (20 and more) Unknown 04/16/2008 Administer ed Hepatitis B (20 and more) Unknown 04/16/2008 Administer ed PNEUMOVAX 23 VACCINE IM Intramuscular 12/26/2019 Administe red DT, 7 YEARS OR OLDER Unknown 09/02/1996 Administered COVID 19 Pfizer Unknown 08/21/2020 Administered COVID 19 Pfizer Unknown 09/11/2020 Administered COVID 19 Pfizer Unknown 03/23/2021 Administered Prevnar (PCV20) IM Intramuscular 12/30/2021 Administered Shingrix Unknown 04/23/2021 Administered Shingrix Unknown 06/30/2021 Administered Tetanus Tdap-Adacel (over 7yrs) IM Intramuscular 08/03/2011 Administered xAdministration of injection IM Intramuscular 04/08/2013 Administered xFluzone High Dose-private (65yr&older) Unknown 05/03/2019 Administered xFluzone Intradermal (18-64yrs)-trivalent ID Intradermal 04/08/2013 Administered Problems Problem Type SNOMED Code ICD Code Onset Dates Problem Status W/U Status Risk Notes Problem Essential hypertension (67577230) Essential hypertension (I10) Active confirmed Problem Obese class I (310025805310333) BMI 33.0-33.9,adult (Z68.33) Active confirmed Problem Primary insomnia (4378713) Primary insomnia (F51.01) Active confirmed Problem Obese class II (109336384030739) BMI 35.0-35.9,adult (Z68.35) Active confirmed Problem Sacroiliitis (15029738) Sacroiliitis (M46.1) Active confirmed Problem Anemia (104741784) Anemia, unspecified type (D64.9) Active confirmed Problem Osteoarthritis of knee (881020833) Primary osteoarthritis of right knee (M17.11) Active confirmed Problem Dyslipidemia (774372531) Dyslipidemia (E78.5) Active confirmed Problem Allergic rhinitis (20438916) Allergic rhinitis, unspecified seasonality, unspecified trigger (J30.9) Active confirmed Problem Osteopenia of left hip (M85.852) Active confirmed Vital Signs Heart Rate 48 /min 02/12/2025 Blood pressure diastolic 72 mm Hg 02/12/2025 Height 62 in 02/12/2025 Blood pressure systolic 118 mm Hg 02/12/2025 Weight 152.6 lbs 02/12/2025 BMI 27.91 kg/m2 02/12/2025 Encounters Encounter Location Date Provider Diagnosis [facility] [facility] [facility] [address] [place], [place] [id number] 04/04/2024 Dinora Rutherford Non-recurrent acute serous otitis media of both ears H65.03 and Acute URI J06.9 [facility] [address] [place], [place] [id number] 07/03/2024 Patsy Wu Adult general medica l examination Z00.00 ; Essential hypertension I10 ; Dyslipidemia E78.5 ; Screening for osteoporosis Z13.820 and BMI 29.0-29.9,adult Z68.29 [facility] [address] [place] [id number] 09/27/2024 Ismael [place] Acute URI J06.9 ; Dizziness R42 and Anemia, unspecified type D64.9 [facility] [address] [place] [id number] 09/29/2024 Ismael [place] Anemia, unspecified type D64.9 ; Essential hypertension I10 ; Dyslipidemia E78.5 and Gastrointestinal hemorrhage, unspecified gastrointestinal hemorrhage type K92.2 [facility] [address] [place] [id number] 10/10/2024 Ismael [place] Anemia, unspecified type D64.9 [facility] [address] [place], [place] [id number] 12/12/2024 Ismael [place] Left wrist pain M25. 532 ; Anemia, unspecified type D64.9 ; Right foot pain M79.671 ; Dyslipidemia E78.5 ; Myalgia M79.10 and BMI 28.0-28.9,adult Z68.28 [facility] [address] [place], [place] [id number] 02/12/2025 R Juvenal Wu SK (seborrheic kerat osis) L82.1 and BMI 27.0-27.9,adult Z68.27 [facility] [address] [place], [place] [id number] 05/22/2024 Patsy Wu [facility] [address] [place], [place] [id number] 07/08/2024 R Juvenal Bryce [facility] [address] [place], [place] [id number] 07/31/2024 R Juvenal Bryce [facility] [address] [place], [place] [id number] 09/30/2024 Ismael [place] [facility] [address] [place], [place] [id number] 10/03/2024 Ismael [place] [facility] [address] [place], [place] [id number] 10/09/2024 Ismael [place] [facility] [address] [place], [place] [id number] 12/16/2024 Ismael [place] [facility] [address] [place], [place] [id number] 01/21/2025 R Juvenal Bryce [facility] [address] [place], [place] [id number] 03/03/2025 R Juvenal Bryce Breast cancer screen ing Z12.31 [facility] [address] [place], [place] [id number] 03/09/2025 R Juvenal Bryce [facility] [address] [place], [place] [id number] 03/16/2025 R Juvenal Bryce Assessments Encounter Date Diagnosis (ICD Code) Assessment Notes Treatment Notes Treatment Clinical Notes Section Notes 04/04/2024 Acute URI (ICD-10 - J06.9) Patient has cough and congestion medication if she needs it. 04/04/2024 Non-recurrent acute serous otitis media of both ears (ICD-10 - H65.03) 07/03/2024 Essential hypertension (ICD-10 - I10) 07/03/2024 Adult general medical examination (ICD-10 - Z00.00) Patient instructed to return to office Annually for Annual Wellness Visits to include annual screenings of Pain assessment, Functional Ability assessment, Cognitive Ability assessment, Fall Risk assessment, Depression screening and Bladder control screening. 09/27/2024 Dizziness (ICD-10 - R42) 09/27/2024 Acute URI (ICD-10 - J06.9) fluids, rest, supportive measures 09/29/2024 Essential hypertension (ICD-10 - I10) 09/29/2024 Anemia, unspecified type (ICD-10 - D64.9) 10/10/2024 Anemia, unspecified type (ICD-10 - D64.9) 12/12/2024 Left wrist pain (ICD-10 - M25.532) 12/12/2024 Anemia, unspecified type (ICD-10 - D64.9) 02/12/2025 BMI 27.0-27.9,adult (ICD-10 - Z68.27) 02/12/2025 SK (seborrheic keratosis) (ICD-10 - L82.1) Not likely to respond to cryotherapy. Will proceed with shave excision 03/03/2025 Breast cancer screening (ICD-10 - Z12.31) 07/03/2024 Dyslipidemia (ICD-10 - E78.5) 12/12/2024 Right foot pain (ICD-10 - M79.671) 09/29/2024 Dyslipidemia (ICD-10 - E78.5) 09/27/2024 Anemia, unspecified type (ICD-10 - D64.9) Patient likely has GI bleeding. Recheck labs in 2 days, will arrange GI evaluation with Dr. Koch 07/03/2024 Screening for osteoporosis (ICD-10 - Z13.820) 09/29/2024 Gastrointestinal hemorrhage, unspecified gastrointestinal hemorrhage type (ICD-10 - K92.2) 12/12/2024 Dyslipidemia (ICD-10 - E78.5) 12/12/2024 Myalgia (ICD-10 - M79.10) 07/03/2024 BMI 29.0-29.9,adult (ICD-10 - Z68.29) 12/12/2024 BMI 28.0-28.9,adult (ICD-10 - Z68.28) 09/27/2024 Other Patient to return to office in 2 days for fasting labs Plan Of Treatment Pending Test Test Name Order Date FOBT - Inhouse 09/27/2024 Mammogram 03/03/2025 Insurance Providers Payer Name Payer Address Payer Phone Subscriber Number Group Number Insured Name Patient Relationship to Insured Coverage Start Date Coverage End Date [facility] [address] [place] [phone] [id number] MIKE CATRINA Self - patient is the insured Medications Administered Medication Instructions Date of Administration Dosage Notes Depo- Medrol 40 mg/ml 03/29/2010 1.5 mL Medical (General) History Medical History History ICD Code DJD left knee Hypertension Tinnitus Degenerative lumbar disc disease Surgical History Surgery Date(Month/Year) knee surgery on right knee Dr Qu[facility] 05/20/2008 lumbar disc surgery - Dr. Lopez 2009 [facility]/ Koch/ polyps 02/02/2020 Hospitalization History Reason Date(Month/Year)
--- OUTSIDE RECORDS SUMMARY | 2025-03-24 14:39 | XMS_ITS | Clinical Summary ---
Author Organization Healthcare Address [address] [place] [address] Care Team Providers Care Lpn Cma Name Role Phone Dylan Wu MD Primary Care Provider [phone] Social History Tobacco Use Types Packs/Day Years [...] [facility] [address] [place] [address] Health Maintenance Due Date Last Done Comments [...] Cancer Screening 1998 [facility]-Breast Cancer Screening 2003 [id number] Vaccine ( season) 2025 04/20/2023, 2022, 10/17/2021, Additional history exists [facility]-Influenza [...] patient's age to complete this topic Insurance [facility] MEDICARE Care Teams Lpn Cma Relationship Specialty Start Date End Date Dylan Wu MD [address] [place] [address] PCP - General 11/12/20
== END 2025-03-24 23:59 | disposition home or self-care (01) ==
LOC: RAD 14:36
PROVIDERS: PCP Family Medicine; Visit Provider Family Medicine
DX: Z12.31 Encounter for screening mammogram for malignant neoplasm of breast (principal); R92.323 Mammographic fibroglandular density, bilateral breasts
CPT/HCPCS: 77063; 77067